=== PATIENT | male | born 1930 | race Caucasian/White ===

== ENCOUNTER 2016-08-17 14:49 | Emergency (ER) | payer MEDICARE ==
[2016-08-17 16:54] VITALS: TEMP 98
--- NOTE | 2016-08-17 17:13 | RAD ---
PROCEDURE: Chest,2 Views CLINICAL HISTORY: edema INDICATION: Same as above COMPARISON: 03/06/2016 TECHNIQUE: PA and and lateral chest radiographs were obtained. FINDINGS: Note is again made of CABG and median sternotomy There are no discrete airspace infiltrates, pneumothoraces or pleural effusions. The pulmonary vascularity is normal The cardiomediastinal silhouette is stable IMPRESSION: There is no acute pleural-parenchymal process seen in the imaged lung kohler. Place of interpretation: [facility]. 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
--- NOTE | 2016-08-17 18:15 | ED.PDOC ---
History of Present Illness - General Chief Complaint: Cardiovascular Problem Stated Complaint: edema to legs Time Seen by Provider: 08/17/16 16:40 Source: patient, family Exam Limitations: no limitations - History of Present Illness Initial Comments: the patient is an 86-year-old male presenting to the emergency room secondary to lower extremity edema that has been present and somewhat progressive over the last 3-4 months. He is also reporting some shortness of breath with exertion. No orthopnea or paroxysmal nocturnal dyspnea. He did just recently received a steroid shot with his primary care doctor for rhinitis. No sick. Near syncope. No palpitations. He does not need to wear oxygen at home. No chest pain. Timing/Duration: constant, getting worse Severity: moderate Improving Factors: nothing Worsening Factors: nothing Associated Symptoms: malaise, shortness of breath, weakness Allergies/Adverse Reactions: Allergies Penicillin G Allergy (Verified 03/06/16 18:18) Procaine [From Novocain] Allergy (Verified 03/06/16 18:18) IVP dye Allergy (Uncoded 03/06/16 18:18) Home Medications: Ambulatory Orders Aspirin [Aspirin Adult Low Dose] 81 mg PO DAILY 01/02/16 Dutasteride [Avodart] 0.5 mg PO DAILY 01/02/16 HYDROcodone 10MG/APAP 325MG [[place] 10/325] 1 ea PO 5XD PRN 01/02/16 Isosorbide Mononitrate [Isosorbide Mononitrate ER] 30 mg PO DAILY 01/02/16 Omeprazole [Prilosec] 40 mg PO DAILY@0700 01/02/16 Propranolol HCl 20 mg PO BID 01/02/16 Tamsulosin [Flomax] 0.4 mg PO BEDTIME 01/02/16 Calcium Carbonate-Vitamin D [Calcium 600+D 600-400 mg-Unit] 1 tab PO DAILY 01/05 Guaifenesin [Mucinex Maximum Strength] 1,200 mg PO BID 01/06/16 Docusate Sodium [Colace Cap] 100 mg PO DAILY #30 cap 01/07/16 Gabapentin [Neurontin] 300 mg PO TID #30 cap 01/07/16 Warfarin Sodium [Coumadin] 4 mg PO BEDTIME #0 01/07/16 Fluticasone Furoate-Vilanterol [Breo Ellipta] 1 inh IN DAILY 03/06/16 Furosemide [Lasix Tab] 80 mg PO BID 03/06/16 Methocarbamol [Robaxin] 750 mg PO Q6HRS PRN 03/06/16 Nitroglycerin Patch 0.2 mg/Hr [Nitro-Dur PATCH 0.2 mg/hour] 0.2 mg TOP QD Tramadol HCl 50 mg PO Q6HR 03/06/16 Metolazone 5 mg PO DAILY #5 tab 08/17/16 Review of Systems - Review of Systems Constitutional: States: malaise EENTM: States: no symptoms reported Respiratory: States: cough, short of breath Cardiology: States: edema Gastrointestinal/Abdominal: States: no symptoms reported Genitourinary: States: no symptoms reported Musculoskeletal: States: no symptoms reported Skin: States: no symptoms reported Neurological: States: no symptoms reported Endocrine: States: no symptoms reported All other Systems: No Change from Baseline Past Medical History (General) - Patient Medical History Hx Seizures: No Hx Stroke: No Hx Dementia: No Hx Asthma: No Hx of COPD: Yes Hx Cardiac Disorders: Yes Hx Congestive Heart Failure: Yes Hx Pacemaker: No Hx Hypertension: Yes Hx Thyroid Disease: No Hx Diabetes: No Hx Cancer: No Hx of HIV: No Hx Hepatitis C: No Hx MRSA: No - Vaccination History Hx Influenza Vaccination: Yes Hx Pneumococcal Vaccination: Yes - Social History Hx Tobacco Use: No Hx Alcohol Use: No Hx Substance Use: No Hx Substance Use Treatment: No Hx Depression: No Hx Physical Abuse: No Hx Emotional Abuse: No - Female History Patient is a Female of Child Bearing Age (10 -59 yrs old): No Family Medical History - Family History Mother Family History: Unknown Living Status: Age at (years of age): 85 Cause of : cardiac Physical Exam - Physical Exam General Appearance: Alert, Comfortable, No apparent distress Eye Exam: bilateral normal Ears, Nose, Throat: normal ENT inspection, normal pharynx Neck: non-tender, full range of motion, supple, normal inspection Respiratory: chest non-tender, lungs clear, normal breath sounds, no respiratory distress, no accessory muscle use Cardiovascular/Chest: normal peripheral pulses, irregularly irregular - but regular rate Peripheral Pulses: radial,right: 2+, radial,left: 2+, dorsalis pedis,right: 2+, dorsalis pedis,left: 2+ Gastrointestinal/Abdominal: non tender, soft, other - no obvious ascites Rectal Exam: deferred Back Exam: normal inspection Extremity: normal range of motion, non-tender, normal inspection, normal capillary refill Neurologic: alert, normal mood/affect, oriented x 3 Skin Exam: normal color Comments: Vital Signs - 24 hr 08/17/16 16:50 Temperature 98.0 F Pulse Rate [ 77 left arm] Respiratory 18 Rate Blood Pressure 144/79 [Left Arm] O2 Sat by Pulse 92 L Oximetry Progress - Progress Progress: 08/17/16 18:18 the patient is an 86-year-old male presenting to the emergency room secondary to peripheral edema that has been progressive over the last few months with a mild associated increased shortness of breath with activity. He does appear to be having a mild congestive heart failure exacerbation. He is not requiring oxygen and is not in any distress. He should require some compression stockings for his lower extremities to use during the daytime. He needs to take his Lasix 40 mg in the morning and at 2 PM. He is going to be written for metolazone 5 mg each morning for 5 days only. He needs to follow- up with his primary care doctor towards the end of this course. He needs to weigh himself daily. He needs to limit his fluid intake to 1500 cc daily. He needs to limit his salt intake. Exercise is encouraged. Lab work and chest x- ray are reassuring here today. Renal function does need to be followed. - Results/Orders Results/Orders: 08/17/16 16:41 Telemetry .CONTINUOUS 08/17/16 16:45 EKG STAT shows atrial fibrillation with good rate control. Low voltage. No acute ST segment changes immediately worrying for ischemia. Chest x-ray shows no obvious fluid overload. Gross cardiomegaly. No obvious infiltrate. Laboratory Results - last 24 hr 08/17/16 16:55 WBC 7.5 RBC 3.27 L Hgb 10.8 L Hct 32.5 L MCV 99.4 H MCH 33.0 H MCHC 33.3 RDW 16.4 H Plt Count 162 MPV 7.4 Absolute Neuts (auto) 6.90 H Absolute Lymphs (auto) 0.40 L Absolute Monos (auto) 0.20 Absolute Eos (auto) 0.00 Absolute Basos (auto) 0.00 Neutrophils % 91.2 H Lymphocytes % 5.2 L Monocytes % 3.0 Eosinophils % 0.1 L Basophils % 0.5 PT 55.6 H* INR 5.000 H* PTT (SP) 46.3 H Sodium 142 Potassium 4.4 Chloride 105 Carbon Dioxide 28 Anion Gap 13.4 BUN 27 H Creatinine 1.30 BUN/Creatinine Ratio 20.8 H Random Glucose 106 H Serum Osmolality 288.7 Calcium 8.7 Total Bilirubin 0.6 AST 17 ALT 16 Alkaline Phosphatase 51 Creatine Kinase 43 CK-MB (CK-2) 2.0 CK-MB (CK-2) % Not Reportable Troponin I 0.03 B-Natriuretic Peptide 574.0 H* Serum Total Protein 6.5 Albumin 3.4 Globulin 3.1 Albumin/Globulin Ratio 1.1 TSH 0.38 Departure - Departure Clinical Impression: Congestive heart failure Qualifiers: Congestive heart failure type: unspecified congestive heart failure type Congestive heart failure chronicity: acute on chronic Qualifier Code: (I50.9) Heart failure, unspecified Disposition: Discharge to Home or Self Care Condition: Fair Departure Forms: ED Discharge - Pt. Copy, Patient Portal Self Enrollment Instructions: DI for Heart Failure Diet: low salt diet Activity: increase activity as tolerated Referrals: Philip Mayer MD [Primary Care Provider] - 1-2 Weeks Prescriptions: Metolazone 5 mg PO DAILY #5 tab Home Medications: Ambulatory Orders Aspirin [Aspirin Adult Low Dose] 81 mg PO DAILY 01/02/16 Dutasteride [Avodart] 0.5 mg PO DAILY 01/02/16 HYDROcodone 10MG/APAP 325MG [[place] 10/325] 1 ea PO 5XD PRN 01/02/16 Isosorbide Mononitrate [Isosorbide Mononitrate ER] 30 mg PO DAILY 01/02/16 Omeprazole [Prilosec] 40 mg PO DAILY@0700 01/02/16 Propranolol HCl 20 mg PO BID 01/02/16 Tamsulosin [Flomax] 0.4 mg PO BEDTIME 01/02/16 Calcium Carbonate-Vitamin D [Calcium 600+D 600-400 mg-Unit] 1 tab PO DAILY 01/05 Guaifenesin [Mucinex Maximum Strength] 1,200 mg PO BID 01/06/16 Docusate Sodium [Colace Cap] 100 mg PO DAILY #30 cap 01/07/16 Gabapentin [Neurontin] 300 mg PO TID #30 cap 01/07/16 Warfarin Sodium [Coumadin] 4 mg PO BEDTIME #0 01/07/16 Fluticasone Furoate-Vilanterol [Breo Ellipta] 1 inh IN DAILY 03/06/16 Furosemide [Lasix Tab] 80 mg PO BID 03/06/16 Methocarbamol [Robaxin] 750 mg PO Q6HRS PRN 03/06/16 Nitroglycerin Patch 0.2 mg/Hr [Nitro-Dur PATCH 0.2 mg/hour] 0.2 mg TOP QD Tramadol HCl 50 mg PO Q6HR 03/06/16 Metolazone 5 mg PO DAILY #5 tab 08/17/16 Additional Instructions: the patient is an 86-year-old male presenting to the emergency room secondary to peripheral edema that has been progressive over the last few months with a mild associated increased shortness of breath with activity. He does appear to be having a mild congestive heart failure exacerbation. He is not requiring oxygen and is not in any distress. He should require some compression stockings for his lower extremities to use during the daytime. He needs to take his Lasix 40 mg in the morning and at 2 PM. He is going to be written for metolazone 5 mg each morning for 5 days only. He needs to follow- up with his primary care doctor towards the end of this course. He needs to weigh himself daily. He needs to limit his fluid intake to 1500 cc daily. He needs to limit his salt intake. Exercise is encouraged. Lab work and chest x- ray are reassuring here today. Renal function does need to be followed.
[2016-08-17 19:07] VITALS: BP 138/76; O2SAT 94
== END 2016-08-17 18:50 | disposition home or self-care (01) ==
LOC: ER 14:49
DX: I11.0 Hypertensive heart disease with heart failure (principal); I50.9 Heart failure, unspecified; J44.9 Chronic obstructive pulmonary disease, unspecified; I48.91 Unspecified atrial fibrillation; Z79.899 Other long term (current) drug therapy; Z79.82 Long term (current) use of aspirin; Z79.01 Long term (current) use of anticoagulants; Z88.0 Allergy status to penicillin; Z88.4 Allergy status to anesthetic agent; Z91.041 Radiographic dye allergy status

== ENCOUNTER 2016-08-28 13:51 | Emergency (ER) | payer MEDICARE ==
--- NOTE | 2016-08-28 14:05 | ED.PDOC ---
History of Present Illness - General Chief Complaint: Respiratory Problem Stated Complaint: shortness of breath Time Seen by Provider: 08/28/16 14:04 Source: patient, family Exam Limitations: no limitations - History of Present Illness Initial Comments: Mr. Mack Viveros 86 y/o male with history of cad,chf ,Afib stated that he had been having sob for the last 4 months and he is on 2 water pills but stated that it had gotten worse the last 4days feeling tried catching his breath with 4 step walking at home and getting out of bed. Timing/Duration: other - 120 DAYS Activities at Onset: activity Possible Cause: chronic episodes - chf Worsening Factors: movement Associated Symptoms: weakness Allergies/Adverse Reactions: Allergies Penicillin G Allergy (Verified 03/06/16 18:18) Procaine [From Novocain] Allergy (Verified 03/06/16 18:18) IVP dye Allergy (Uncoded 03/06/16 18:18) Home Medications: Ambulatory Orders Aspirin [Aspirin Adult Low Dose] 81 mg PO DAILY 01/02/16 Dutasteride [Avodart] 0.5 mg PO .M-W-F 01/02/16 HYDROcodone 10MG/APAP 325MG [[place] 10/325] 1 ea PO 5XD PRN 01/02/16 Isosorbide Mononitrate [Isosorbide Mononitrate ER] 30 mg PO DAILY 01/02/16 Omeprazole [Prilosec] 40 mg PO DAILY@0700 01/02/16 Propranolol HCl 20 mg PO BID 01/02/16 Tamsulosin [Flomax] 0.4 mg PO BEDTIME 01/02/16 Calcium Carbonate-Vitamin D [Calcium 600+D 600-400 mg-Unit] 1 tab PO DAILY 01/05 Guaifenesin [Mucinex Maximum Strength] 1,200 mg PO BID 01/06/16 Furosemide [Lasix Tab] 80 mg PO DAILY 03/06/16 Albuterol Sulfate Nebs [Proventil Nebs] 2.5 mg INH PRN 08/28/16 Fluticasone/Salmeterol 250/50 [Advair Diskus] 1 puff INH BID 08/28/16 Nitroglycerin [Nitrostat] 0.4 mg SL PRN 08/28/16 Polyethylene Glycol 3350 [Miralax] 17 gm PO DAILY 08/28/16 Potassium Chloride Elixir [Kaochlor Liquid] 7.5 meq PO DAILY 08/28/16 Red Yeast Rice Extract [Red Yeast Rice] 600 mg PO TID 08/28/16 Temazepam 15 mg PO BEDTIME 08/28/16 Tiotropium [place] Monohydrate [Spiriva Handihaler] 1 puff IN DAILY 08/28/16 Warfarin Sodium 2 mg PO .M-W-F 08/28/16 Warfarin Sodium [Coumadin] 4 mg PO .SA,AMANDA,TU,TH 08/28/16 Review of Systems - Review of Systems Constitutional: States: see HPI EENTM: States: no symptoms reported Respiratory: States: orthopnea, short of breath Cardiology: States: edema Gastrointestinal/Abdominal: States: no symptoms reported Genitourinary: States: other - frequency Skin: States: no symptoms reported Neurological: States: no symptoms reported Endocrine: States: no symptoms reported Hematologic/Lymphatic: States: no symptoms reported Past Medical History (General) - Patient Medical History Hx Seizures: No Hx Stroke: No Hx Dementia: No Hx Asthma: No Hx of COPD: Yes Hx Cardiac Disorders: Yes Hx Congestive Heart Failure: Yes Hx Pacemaker: No Hx Hypertension: Yes Hx Thyroid Disease: No Hx Diabetes: No Hx Cancer: No Hx of HIV: No Hx Hepatitis C: No Hx MRSA: No Surgical History: coronary bypass surgery, other - hernia repair - Vaccination History Hx Influenza Vaccination: Yes Hx Pneumococcal Vaccination: Yes - Social History Hx Tobacco Use: No Hx Alcohol Use: No Hx Substance Use: No Hx Substance Use Treatment: No Hx Depression: No Hx Physical Abuse: No Hx Emotional Abuse: No - Activities of Daily Living Patient Lives Alone: No - Grooming Ability: Moderate Assistance Eating (Feeding) Ability: Standby Assistance Toileting Ability: Minimum Assistance Family Medical History - Family History Mother Family History: Unknown Living Status: Age at (years of age): 85 Cause of : cardiac Hx Cardiac Disease: Yes - both parents Physical Exam - Physical Exam General Appearance: Alert, Anxious, No apparent distress Eyes, Ears, Nose, Throat Exam: PERRL/EOMI, normal ENT inspection, TMs normal, pharynx normal Neck: non-tender, full range of motion, supple, normal inspection, other - no jvd Respiratory: chest non-tender, no respiratory distress, rales - bases Cardiovascular/Chest: normal peripheral pulses, regular rate, rhythm, no edema, no gallop, no JVD Peripheral Pulses: radial,right: 2+, radial,left: 2+ Gastrointestinal/Abdominal: normal bowel sounds, non tender, soft, no organomegaly, no pulsatile mass Extremity: normal range of motion, non-tender, pedal edema - 2+ Neurologic: sustainability specialist II-XII nml as tested, no motor/sensory deficits, alert, normal mood/affect, oriented x 3 Skin Exam: normal color, warm/dry Lymphatic: no adenopathy Progress - Results/Orders Results/Orders: 08/28/16 16:00 Bumetanide Inj [Bumex Injection] 1 mg IV DAILY 08/28/16 17:21 URINALYSIS Stat Laboratory Results WBC 7.0 K/mm3 (4.8-10.8) 08/28/16 14:20 RBC 3.61 M/mm3 (4.70-6.10) L 08/28/16 14:20 Hgb 11.8 gm/dL (14.0-18.0) L 08/28/16 14:20 Hct 35.7 % (42.0-52.0) L 08/28/16 14:20 MCV 98.7 fl (80.0-94.0) H 08/28/16 14:20 MCH 32.6 pg (27.0-31.0) H 08/28/16 14:20 MCHC 33.2 g/dL (33.0-37.0) 08/28/16 14:20 RDW 16.4 % (11.5-14.5) H 08/28/16 14:20 Plt Count 247 K/mm3 (130-400) 08/28/16 14:20 MPV 7.3 fl (7.40-10.4) L 08/28/16 14:20 Absolute Neuts (auto) 5.40 K/uL (1.8-6.8) 08/28/16 14:20 Absolute Lymphs (auto) 0.60 K/uL (1.0-3.4) L 08/28/16 14:20 Absolute Monos (auto) 0.60 K/uL (0.2-0.8) 08/28/16 14:20 Absolute Eos (auto) 0.40 K/uL (0.0-0.4) 08/28/16 14:20 Absolute Basos (auto) 0.10 K/uL (0.0-0.1) 08/28/16 14:20 Neutrophils % 77.4 % (42.0-78.0) 08/28/16 14:20 Lymphocytes % 8.6 % (20.0-50.0) L 08/28/16 14:20 Monocytes % 7.8 % (2.0-9.0) 08/28/16 14:20 Eosinophils % 5.3 % (1.0-5.0) H 08/28/16 14:20 Basophils % 0.9 % (0.0-2.0) 08/28/16 14:20 Sodium 141 mmol/L (135-145) 08/28/16 14:20 Potassium 3.9 mmol/L (3.6-5.0) 08/28/16 14:20 Chloride 102 mmol/L (101-111) 08/28/16 14:20 Carbon Dioxide 29 mmol/L (21-31) 08/28/16 14:20 Anion Gap 13.9 (12-18) 08/28/16 14:20 BUN 24 mg/dL (7-18) H 08/28/16 14:20 Creatinine 1.19 mg/dL (0.6-1.3) 08/28/16 14:20 BUN/Creatinine Ratio 20.2 (10-20) H 08/28/16 14:20 Random Glucose 101 mg/dL (70-105) 08/28/16 14:20 Serum Osmolality 285.4 mOsm/L (275-295) 08/28/16 14:20 Calcium 8.8 mg/dL (8.4-10.2) 08/28/16 14:20 Total Bilirubin 0.9 mg/dL (0.2-1.0) 08/28/16 14:20 AST 17 IU/L (10-42) 08/28/16 14:20 ALT 18 IU/L (10-60) 08/28/16 14:20 Alkaline Phosphatase 51 IU/L (42-121) 08/28/16 14:20 Creatine Kinase 11 IU/L (38-174) L 08/28/16 14:20 CK-MB (CK-2) 1.2 ng/mL (0.0-4.4) 08/28/16 14:20 CK-MB (CK-2) % Not Reportable 08/28/16 14:20 Troponin I 0.03 ng/mL (0.01-0.05) 08/28/16 14:20 B-Natriuretic Peptide 355.0 pg/ml (0-100) H* 08/28/16 14:20 Serum Total Protein 6.3 gm/dL (6.4-8.2) L 08/28/16 14:20 Albumin 3.4 g/dl (3.2-5.5) 08/28/16 14:20 Globulin 2.9 gm/dL (2.3-3.5) 08/28/16 14:20 Albumin/Globulin Ratio 1.2 (1.1-1.9) 08/28/16 14:20 TSH 1.30 uIU/mL (0.34-5.60) 08/28/16 14:26 08/28/16 08/28/16 08/28/16 14:03 14:14 15:10 Temperature 97.8 F Pulse Rate Pulse Rate [ 88 77 Left Brachial] Respiratory 24 24 20 Rate Blood Pressure 99/53 98/58 [Left Arm] O2 Sat by Pulse 94 L 97 Oximetry 08/28/16 08/28/16 15:50 15:59 Temperature Pulse Rate 87 Pulse Rate [ 77 Left Brachial] Respiratory 18 24 Rate Blood Pressure 104/62 [Left Arm] O2 Sat by Pulse 97 97 Oximetry Ddimer-418 PT/INR-1.43 - EKG/XRAY/CT EKG: Fibrillation - atrialwith normal ventricular rate XRAY: chest - no acute abnormalities Departure - Departure Clinical Impression: CHF (NYHA class IV, ACC/AHA stage D), Atrial fibrillation with normal ventricular rate, Dyspnea on exertion Chronic CHF (congestive heart failure) Qualifiers: Congestive heart failure type: combined Qualifier Code: (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 Copy, Patient Portal Self Enrollment Instructions: How to [place] With Heart Failure, DI for Heart Failure Home Medications: Ambulatory Orders Aspirin [Aspirin Adult Low Dose] 81 mg PO DAILY 01/02/16 Dutasteride [Avodart] 0.5 mg PO .-01/02/16 HYDROcodone 10MG/APAP 325MG [[place] 10/325] 1 ea PO 5XD PRN 01/02/16 Isosorbide Mononitrate [Isosorbide Mononitrate ER] 30 mg PO DAILY 01/02/16 Omeprazole [Prilosec] 40 mg PO DAILY@0700 01/02/16 Propranolol HCl 20 mg PO BID 01/02/16 Tamsulosin [Flomax] 0.4 mg PO BEDTIME 01/02/16 Calcium Carbonate-Vitamin D [Calcium 600+D 600-400 mg-Unit] 1 tab PO DAILY 01/05 Guaifenesin [Mucinex Maximum Strength] 1,200 mg PO BID 01/06/16 Furosemide [Lasix Tab] 80 mg PO DAILY 03/06/16 Albuterol Sulfate Nebs [Proventil Nebs] 2.5 mg INH PRN 08/28/16 Fluticasone/Salmeterol 250/50 [Advair Diskus] 1 puff INH BID 08/28/16 Nitroglycerin [Nitrostat] 0.4 mg SL PRN 08/28/16 Polyethylene Glycol 3350 [Miralax] 17 gm PO DAILY 08/28/16 Potassium Chloride Elixir [Kaochlor Liquid] 7.5 meq PO DAILY 08/28/16 Red Yeast Rice Extract [Red Yeast Rice] 600 mg PO TID 08/28/16 Temazepam 15 mg PO BEDTIME 08/28/16 Tiotropium [place] Monohydrate [Spiriva Handihaler] 1 puff IN DAILY 08/28/16 Warfarin Sodium 2 mg PO .08/28/16 Warfarin Sodium [Coumadin] 4 mg PO .SA,AMANDA,TU,TH 08/28/16 Additional Instructions: FOLLOW UP WITH YOUR PRIMARY MD IN AM CALL HIS OFFICE;RETURN TO EMERGENCY ROOM NEEDED CONTINUE WITH CURRENT MEDICATIONS
[2016-08-28 14:07] VITALS: TEMP 97.8
--- NOTE | 2016-08-28 14:27 | RAD ---
PROCEDURE: XR CHEST 1 VIEW HISTORY: sob COMPARISON: 08/17/2016 TECHNIQUE: Single projection of the chest was done. FINDINGS: Note is again made of median sternotomy and CABG. Chronic prominence of the interstitium is seen in the bilateral lung kohler . There are no discrete airspace infiltrates, pneumothoraces or pleural effusions. The pulmonary vascularity is normal. The cardiomediastinal contour is stable . IMPRESSION: There is no acute pleural-parenchymal process seen in the imaged lung kohler. Location of Interpretation: [facility]iology Electronically signed by: Bj Lock MD 08/28/2016 2:25 PM CDT
[2016-08-28] MEDS ORDERED: IPRATROPIUM/ALBUTEROL 3 ML VIAL NEB ONE (15:38)
[2016-08-28] MEDS ORDERED: BUMETANIDE 0.25 MG/ML VIAL IV SCH (16:00)
[2016-08-28 19:06] VITALS: BP 99/52; O2SAT 95
== END 2016-08-28 19:06 | disposition home or self-care (01) ==
LOC: ER 13:51
DX: I48.91 Unspecified atrial fibrillation (principal); R06.09 Other forms of dyspnea; I11.0 Hypertensive heart disease with heart failure; I50.42 Chronic combined systolic (congestive) and diastolic (congestive) heart failure; Z95.1 Presence of aortocoronary bypass graft; J44.9 Chronic obstructive pulmonary disease, unspecified; Z79.82 Long term (current) use of aspirin; Z79.01 Long term (current) use of anticoagulants; Z88.0 Allergy status to penicillin; Z88.4 Allergy status to anesthetic agent; Z91.041 Radiographic dye allergy status
CPT/HCPCS: 36415; 71010; 80053; 81001; 82550; 82553; 83880; 84443; 84484; 85025; 85379; 85610; 93005; 94640; J3490; J7620

== ENCOUNTER → 2016-09-07 | Outpatient (CLI) | payer MEDICARE | END | disposition home or self-care (01) | LOC: GMA 20:07 | PROVIDERS: ATTEND Nurse Practitioner Acute Care | DX: J06.9 Acute upper respiratory infection, unspecified (principal) ==

== ENCOUNTER 2016-09-10 22:40 | Emergency (ER) | payer MEDICARE ==
--- NOTE | 2016-09-10 22:45 | ED.PDOC ---
History of Present Illness - General Chief Complaint: Respiratory Problem Stated Complaint: cough out blood Time Seen by Provider: 09/10/16 22:44 Source: patient Exam Limitations: no limitations - History of Present Illness Initial Comments: Mack Viveros 86y/o male with history of copd,chf,afib on chronic anticoagulation and was prescribed home oxygen recently stated after coughing episode he had blood tinged sputum no blood clots with it.Had chest ct w/o 2010 had right pulmonary nodule follow up chest ct w/o 2012 no interval change of the 7mm.nodule noted as read by radiologist. Timing/Duration: this evening Severity: moderate Possible Cause: no prior episodes, other - history of chronic anticoagulation with warfarin Improving Factors: nothing Associated Symptoms: chest pain/soreness - right side, cough, wheezing Respiratory Risk Factors: other - copd Allergies/Adverse Reactions: Allergies Penicillin G Allergy (Verified 03/06/16 18:18) Procaine [From Novocain] Allergy (Verified 03/06/16 18:18) IVP dye Allergy (Uncoded 03/06/16 18:18) Home Medications: Ambulatory Orders Aspirin [Aspirin Adult Low Dose] 81 mg PO DAILY 01/02/16 Dutasteride [Avodart] 0.5 mg PO .M-W-F 01/02/16 HYDROcodone 10MG/APAP 325MG [[place] 10/325] 1 ea PO 5XD PRN 01/02/16 Isosorbide Mononitrate [Isosorbide Mononitrate ER] 30 mg PO DAILY 01/02/16 Omeprazole [Prilosec] 40 mg PO DAILY@0700 01/02/16 Propranolol HCl 20 mg PO BID 01/02/16 Tamsulosin [Flomax] 0.4 mg PO BEDTIME 01/02/16 Calcium Carbonate-Vitamin D [Calcium 600+D 600-400 mg-Unit] 1 tab PO DAILY 01/05 Guaifenesin [Mucinex Maximum Strength] 1,200 mg PO BID 01/06/16 Furosemide [Lasix Tab] 80 mg PO DAILY 03/06/16 Albuterol Sulfate Nebs [Proventil Nebs] 2.5 mg INH PRN 08/28/16 Fluticasone/Salmeterol 250/50 [Advair Diskus] 1 puff INH BID 08/28/16 Nitroglycerin [Nitrostat] 0.4 mg SL PRN 08/28/16 Polyethylene Glycol 3350 [Miralax] 17 gm PO DAILY 08/28/16 Potassium Chloride Elixir [Kaochlor Liquid] 7.5 meq PO DAILY 08/28/16 Red Yeast Rice Extract [Red Yeast Rice] 600 mg PO TID 08/28/16 Temazepam 15 mg PO BEDTIME 08/28/16 Tiotropium [place] Monohydrate [Spiriva Handihaler] 1 puff IN DAILY 08/28/16 Warfarin Sodium 2 mg PO .-W-08/28/16 Warfarin Sodium [Coumadin] 4 mg PO .SA,AMANDA,TU,TH 08/28/16 Review of Systems - Review of Systems Constitutional: States: no symptoms reported EENTM: States: no symptoms reported Respiratory: States: see HPI Cardiology: States: see HPI Gastrointestinal/Abdominal: States: no symptoms reported Genitourinary: States: no symptoms reported Musculoskeletal: States: no symptoms reported Skin: States: no symptoms reported Neurological: States: no symptoms reported Endocrine: States: no symptoms reported Hematologic/Lymphatic: States: no symptoms reported Past Medical History (General) - Patient Medical History Hx Seizures: No Hx Stroke: No Hx Dementia: No Hx Asthma: No Hx of COPD: Yes Hx Cardiac Disorders: Yes Hx Congestive Heart Failure: Yes Hx Pacemaker: No Hx Hypertension: Yes Hx Thyroid Disease: No Hx Diabetes: No Hx Cancer: No Hx of HIV: No Hx Hepatitis C: No Hx MRSA: No Hx Other PMH: Yes - bph Surgical History: coronary bypass surgery, other - hernia repair - Vaccination History Hx Influenza Vaccination: Yes Hx Pneumococcal Vaccination: Yes - Social History Hx Tobacco Use: No Hx Alcohol Use: No Hx Substance Use: No Hx Substance Use Treatment: No Hx Depression: No Hx Physical Abuse: No Hx Emotional Abuse: No - Activities of Daily Living Patient Lives Alone: No - with Grooming Ability: Standby Assistance Eating (Feeding) Ability: Standby Assistance Toileting Ability: Standby Assistance Family Medical History - Family History Mother Family History: Unknown Living Status: Age at (years of age): 85 Cause of : cardiac Hx Cardiac Disease: Yes - both parents Physical Exam - Physical Exam General Appearance: Alert, No apparent distress Eye Exam: bilateral normal ENT Exam: normal ENT inspection, hearing grossly normal, TMs normal, pharynx normal Neck: non-tender, full range of motion, supple, normal inspection, trachea midline Respiratory: chest non-tender, no respiratory distress, no accessory muscle use , wheezing, inspiration Cardiovascular/Chest: normal peripheral pulses, no gallop, irregularly irregular , other - ventricular rate 79 Gastrointestinal/Abdominal: normal bowel sounds, non tender, soft, no organomegaly Extremity: non-tender, no calf tenderness, pedal edema - 2 + Neurologic: no motor/sensory deficits, alert, normal mood/affect, oriented x 3 Skin Exam: normal color, warm/dry Lymphatic: no adenopathy Progress - Results/Orders Results/Orders: 09/10/16 22:48 SVN/Updraft Therapy .ONCE 09/10/16 23:00 EKG STAT 09/11/16 09:00 Updrafts Daily Laboratory Results WBC 5.7 K/mm3 (4.8-10.8) 09/10/16 23:15 RBC 3.61 M/mm3 (4.70-6.10) L 09/10/16 23:15 Hgb 11.6 gm/dL (14.0-18.0) L 09/10/16 23:15 Hct 35.3 % (42.0-52.0) L 09/10/16 23:15 MCV 97.9 fl (80.0-94.0) H 09/10/16 23:15 MCH 32.1 pg (27.0-31.0) H 09/10/16 23:15 MCHC 32.7 g/dL (33.0-37.0) L 09/10/16 23:15 RDW 16.3 % (11.5-14.5) H 09/10/16 23:15 Plt Count 243 K/mm3 (130-400) 09/10/16 23:15 MPV 8.0 fl (7.40-10.4) 09/10/16 23:15 Absolute Neuts (auto) 5.10 K/uL (1.8-6.8) 09/10/16 23:15 Absolute Lymphs (auto) 0.50 K/uL (1.0-3.4) L 09/10/16 23:15 Absolute Monos (auto) 0.10 K/uL (0.2-0.8) L 09/10/16 23:15 Absolute Eos (auto) 0.00 K/uL (0.0-0.4) 09/10/16 23:15 Absolute Basos (auto) 0.00 K/uL (0.0-0.1) 09/10/16 23:15 Neutrophils % 89.1 % (42.0-78.0) H 09/10/16 23:15 Lymphocytes % 7.9 % (20.0-50.0) L 09/10/16 23:15 Monocytes % 2.6 % (2.0-9.0) 09/10/16 23:15 Eosinophils % 0.0 % (1.0-5.0) L 09/10/16 23:15 Basophils % 0.4 % (0.0-2.0) 09/10/16 23:15 PT 27.3 SECONDS (9.4-12.5) H* 09/10/16 23:15 INR 2.440 09/10/16 23:15 PTT (SP) 34.4 SECONDS (25.1-36.5) 09/10/16 23:15 Sodium 139 mmol/L (135-145) 09/10/16 23:15 Potassium 4.0 mmol/L (3.6-5.0) 09/10/16 23:15 Chloride 104 mmol/L (101-111) 09/10/16 23:15 Carbon Dioxide 25 mmol/L (21-31) 09/10/16 23:15 Anion Gap 14.0 (12-18) 09/10/16 23:15 BUN 24 mg/dL (7-18) H 09/10/16 23:15 Creatinine 1.32 mg/dL (0.6-1.3) H 09/10/16 23:15 BUN/Creatinine Ratio 18.2 (10-20) 09/10/16 23:15 Random Glucose 145 mg/dL (70-105) H 09/10/16 23:15 Serum Osmolality 284.2 mOsm/L (275-295) 09/10/16 23:15 Calcium 8.9 mg/dL (8.4-10.2) 09/10/16 23:15 Magnesium 1.9 mg/dL (1.8-2.5) 09/10/16 23:15 Total Bilirubin 0.5 mg/dL (0.2-1.0) 09/10/16 23:15 Direct Bilirubin 0.2 mg/dL (0-0.2) 09/10/16 23:15 Indirect Bilirubin 0.3 mg/dL (0.2-0.8) 09/10/16 23:15 AST 21 IU/L (10-42) 09/10/16 23:15 ALT 14 IU/L (10-60) 09/10/16 23:15 Alkaline Phosphatase 50 IU/L (42-121) 09/10/16 23:15 Creatine Kinase 16 IU/L (38-174) L 09/10/16 23:15 CK-MB (CK-2) 1.7 ng/mL (0.0-4.4) 09/10/16 23:15 CK-MB (CK-2) % Not Reportable 09/10/16 23:15 Troponin I < 0.02 ng/mL (0.01-0.05) 09/10/16 23:15 B-Natriuretic Peptide 580.0 pg/ml (0-100) H* 09/10/16 23:15 Serum Total Protein 6.4 gm/dL (6.4-8.2) 09/10/16 23:15 Albumin 3.4 g/dl (3.2-5.5) 09/10/16 23:15 - EKG/XRAY/CT EKG: Atrial, Fibrillation - venticular rate 79 XRAY: chest - no acute cardiopulmonary process Departure - Departure Clinical Impression: Hemoptysis, Acute exacerbation of chronic bronchitis, Anticoagulant long-term use, Atrial fibrillation with normal ventricular rate, Renal insufficiency A-fib Qualifiers: Atrial fibrillation type: chronic Qualifier Code: (I48.2) Chronic atrial fibrillation Chronic CHF (congestive heart failure) Qualifiers: Congestive heart failure type: combined Qualifier Code: (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 Time of Disposition: 00:34 Disposition: Discharge to Home or Self Care Condition: Fair Instructions: DI for Hemoptysis Referrals: Philip Mayer MD [Primary Care Provider] - 1-2 Weeks Home Medications: Ambulatory Orders Aspirin [Aspirin Adult Low Dose] 81 mg PO DAILY 01/02/16 Dutasteride [Avodart] 0.5 mg PO .-01/02/16 HYDROcodone 10MG/APAP 325MG [[place] 10/325] 1 ea PO 5XD PRN 01/02/16 Isosorbide Mononitrate [Isosorbide Mononitrate ER] 30 mg PO DAILY 01/02/16 Omeprazole [Prilosec] 40 mg PO DAILY@0700 01/02/16 Propranolol HCl 20 mg PO BID 01/02/16 Tamsulosin [Flomax] 0.4 mg PO BEDTIME 01/02/16 Calcium Carbonate-Vitamin D [Calcium 600+D 600-400 mg-Unit] 1 tab PO DAILY 01/05 Guaifenesin [Mucinex Maximum Strength] 1,200 mg PO BID 01/06/16 Furosemide [Lasix Tab] 80 mg PO DAILY 03/06/16 Albuterol Sulfate Nebs [Proventil Nebs] 2.5 mg INH PRN 08/28/16 Fluticasone/Salmeterol 250/50 [Advair Diskus] 1 puff INH BID 08/28/16 Nitroglycerin [Nitrostat] 0.4 mg SL PRN 08/28/16 Polyethylene Glycol 3350 [Miralax] 17 gm PO DAILY 08/28/16 Potassium Chloride Elixir [Kaochlor Liquid] 7.5 meq PO DAILY 08/28/16 Red Yeast Rice Extract [Red Yeast Rice] 600 mg PO TID 08/28/16 Temazepam 15 mg PO BEDTIME 08/28/16 Tiotropium [place] Monohydrate [Spiriva Handihaler] 1 puff IN DAILY 08/28/16 Warfarin Sodium 2 mg PO .M-W-F 08/28/16 Warfarin Sodium [Coumadin] 4 mg PO .SA,AMANDA,TU,TH 08/28/16 Additional Instructions: Do not take your aspirin and coumadin starting 09/10-; Follow up with your doctor ROBBIN 09/12/2016 call for appointment;Continue with the rest of your home medication and oxygen except aspirin and coumadin until checked by you
[2016-09-10] MEDS ORDERED: IPRATROPIUM/ALBUTEROL 3 ML VIAL NEB ONE (22:48)
--- NOTE | 2016-09-11 00:12 | RAD ---
EXAM: Single view chest. INDICATION: Chest pain. COMPARISON: Chest x-ray: 08/28/2016. FINDINGS: Cardiac silhouette: Mildly enlarged [place]: Unremarkable. Lobar consolidation: None. Pleural effusion: None. Pneumothorax: None. Other: Median sternotomy wires are noted. Bones: The bones are demineralized Other: Chronic interstitial markings are again noted. IMPRESSION: 1. No acute cardiopulmonary process. Electronically signed by: iVshal Cerna MD 09/11/2016 12:11 AM CDT
[2016-09-11] MEDS ORDERED: IPRATROPIUM/ALBUTEROL 3 ML VIAL NEB ONE (00:33)
[2016-09-11 01:00] VITALS: BP 113/60; TEMP 97; O2SAT 94
== END 2016-09-11 00:59 | disposition home or self-care (01) ==
LOC: ER 22:40
DX: I48.2 Chronic atrial fibrillation (principal); R04.2 Hemoptysis; I11.0 Hypertensive heart disease with heart failure; I50.40 Unspecified combined systolic (congestive) and diastolic (congestive) heart failure; J44.9 Chronic obstructive pulmonary disease, unspecified; Z95.1 Presence of aortocoronary bypass graft; N28.9 Disorder of kidney and ureter, unspecified; Z88.0 Allergy status to penicillin; Z88.4 Allergy status to anesthetic agent; Z91.041 Radiographic dye allergy status; Z79.82 Long term (current) use of aspirin; Z79.01 Long term (current) use of anticoagulants
CPT/HCPCS: 71010; 80048; 80076; 82550; 82553; 83880; 84484; 85025; 85610; 85730; 93005; 94640; J7620

== ENCOUNTER 2016-10-04 07:58 | Inpatient (IN) | payer MEDICARE ==
--- NOTE | 2016-10-04 09:00 | RAD ---
EXAM DESCRIPTION: Abdomen Series CLINICAL HISTORY: ams, falls, vomiting COMPARISON: Chest x-ray September 10, 2016 FINDINGS: AP supine and upright views of the abdomen show a nonspecific, nonobstructive bowel gas pattern with no evidence for free intraperitoneal air. No air-filled dilated loops of small bowel are seen. No significant air-fluid levels are identified. No obvious organomegaly is seen. No abnormal calcifications are seen in the expected location of the renal collecting systems. Single view of the chest shows enlargement of the cardiac silhouette. Pulmonary vascularity is noted. 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 New area of infiltrate or consolidation identified majority of the left upper lobe. Increased densities are seen in the right mid lung field as well. Osseous structures are diffusely osteopenic. 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 Left hip arthroplasty changes are noted. Vertebral augmentation in the mid to upper lumbar spine is seen. IMPRESSION: Nonspecific abdominal series Findings suggest pneumonia or aspiration in the left upper lobe with questionable infiltrates or atelectasis in the right midlung field. Continued follow-up imaging is recommended. Electronically signed by: Brady Gao MD 10/04/2016 8:59 AM CDT
[2016-10-04] MEDS ORDERED: cefTRIAXone SODIUM 1 GM in SODIUM CHL 0.9% 50ML MIN-BAG+ 50 ML IVPB ONE (09:50)
[2016-10-04] MEDS ORDERED: AZITHROMYCIN IV 500 MG in SODIUM CHLORIDE 0.9% 250ML 250 ML IVPB ONE (09:50)
[2016-10-04] MEDS ORDERED: IPRATROPIUM/ALBUTEROL 3 ML VIAL NEB ONE (09:51)
[2016-10-04] MEDS ORDERED: SODIUM CHL 0.9% 50ML MIN-BAG+ 50 ML IVPB ONE (09:53)
[2016-10-04] MEDS ORDERED: cefTRIAXone SODIUM 1 GM VIAL ONE (09:53)
--- NOTE | 2016-10-04 09:59 | CT ---
EXAM DESCRIPTION: Chest w/o Contrast CLINICAL HISTORY: pulm infiltrate:pna vs contusion vs chf COMPARISON: None. TECHNIQUE: Noncontrast transaxial CT images of the chest are obtained. CT scan done according to ALARA (As Low As Reasonably Achievable). FINDINGS: Heart is enlarged. Postsurgical changes from CABG are seen. Moderate calcified plaque of the thoracic aorta is noted. 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 Consider yearly follow-up imaging to determine stability. There are nonspecific less than 1 cm mediastinal lymph nodes identified. No pericardial effusion. No significant pleural effusion. Visualized portion of the upper abdomen shows early visualized, and gallbladder measuring at least 5.3 cm transverse. There is consolidation with air bronchogram appearance to the central to left upper lobe. Smaller nodular area of parenchymal increased density in the right upper lobe measures 1.9 cm. Similar peripheral nodular densities in the mid right lower lobe are seen measuring less than 1.5 cm. Mild interstitial thickening in the lung bases is seen left greater than right. There is interstitial thickening in the lingula of the left upper lobe. Osseous structures are diffusely osteopenic. Remote healed fractures of the anterior left mid to lower chest is seen. Moderate spondylitic changes of the spine are noted. IMPRESSION: Consolidation with air bronchograms in the left upper lobe consistent with pneumonia versus aspiration. Recommend follow-up until resolution to exclude neoplastic process. There are focal areas of airspace density/nodularity in the right upper lobe and right lower lobe that likely also represent pneumonia or infectious inflammatory process. Continued follow-up to exclude neoplastic process is recommended. Increased interstitial markings in the lung bases and lingula could represent chronic changes versus acute interstitial infectious inflammatory process. No significant pleural effusion is identified at this time. Electronically signed by: Brady Gao MD 10/04/2016 9:44 AM CDT
--- NOTE | 2016-10-04 11:00 | ED.PDOC ---
History of Present Illness - General Chief Complaint: General Stated Complaint: fever, "hurting all over" Time Seen by Provider: 10/04/16 07:58 Source: patient Exam Limitations: no limitations - History of Present Illness Initial Comments: The patient is an 86-year-old male presenting to the emergency room secondary to progressive weakness and body aches primarily. EMS had been out to the house approximately 3 times over the last 24 hours. He had fallen at least once and sustained some rib pain on the right after being lifted up by EMS and police to get him back into bed. He has had a slow decline over the last few months essentially becoming wheelchair-bound and oxygen dependent 24 7. He is slightly altered here today. He is in no acute distress. He is requiring approximately 2 L to maintain oxygen saturation greater than 90% which is up from his baseline of only 1 L. He does have rales primarily in the left midlung. He does look weak. He does look pale. He does have mild edema to bilateral lower extremities. He does have pain over the inferior lateral right rib cage. No obvious deformity. He has apparently been on antibiotics up until a week ago with his primary care doctor. The and patient are unsure what those antibiotics are at this time. the patient has been having a productive sputum and did have some very mild hemoptysis according to the this morning. Timing/Duration: 24 hours Severity: moderate Improving Factors: nothing Worsening Factors: movement Associated Symptoms: chest pain, cough, fever/chills, loss of appetite, malaise , shortness of breath, weakness Allergies/Adverse Reactions: Allergies Penicillin G Allergy (Verified 10/04/16 08:23) Procaine [From Novocain] Allergy (Verified 10/04/16 08:23) IVP dye Allergy (Uncoded 10/04/16 08:23) Home Medications: Ambulatory Orders Dutasteride [Avodart] 0.5 mg PO .-W-01/02/16 HYDROcodone 10MG/APAP 325MG [[place] 10/325] 1 ea PO 5XD PRN 01/02/16 Isosorbide Mononitrate [Isosorbide Mononitrate ER] 30 mg PO BID 01/02/16 Omeprazole [Prilosec] 40 mg PO DAILY@0700 01/02/16 Propranolol HCl 20 mg PO BID 01/02/16 Tamsulosin [Flomax] 0.4 mg PO BEDTIME 01/02/16 Calcium Carbonate-Vitamin D [Calcium 600+D 600-400 mg-Unit] 1 tab PO DAILY 01/05 Guaifenesin [Mucinex Maximum Strength] 1,200 mg PO BID 01/06/16 Furosemide [Lasix Tab] 80 mg PO DAILY 03/06/16 Albuterol Sulfate Nebs [Proventil Nebs] 2.5 mg INH PRN 08/28/16 Fluticasone/Salmeterol 250/50 [Advair Diskus] 1 puff INH BID 08/28/16 Nitroglycerin [Nitrostat] 0.4 mg SL PRN 08/28/16 Polyethylene Glycol 3350 [Miralax] 17 gm PO DAILY 08/28/16 Potassium Chloride Elixir [Kaochlor Liquid] 7.5 meq PO DAILY 08/28/16 Red Yeast Rice Extract [Red Yeast Rice] 600 mg PO TID 08/28/16 Temazepam 15 mg PO BEDTIME 08/28/16 Tiotropium [place] Monohydrate [Spiriva Handihaler] 1 puff IN DAILY 08/28/16 Warfarin Sodium 2 mg PO .M-W-08/28/16 Warfarin Sodium [Coumadin] 4 mg PO .SA,AMANDA,TU,TH 08/28/16 Review of Systems - Review of Systems Constitutional: States: fever, malaise, weakness EENTM: States: no symptoms reported Respiratory: States: cough, short of breath Cardiology: States: chest pain - lateral Gastrointestinal/Abdominal: States: no symptoms reported Genitourinary: States: no symptoms reported Musculoskeletal: States: no symptoms reported Skin: States: no symptoms reported Neurological: States: other - mildly delirious Endocrine: States: excessive sweating All other Systems: No Change from Baseline Past Medical History (General) - Patient Medical History Hx Seizures: No Hx Stroke: No Hx Dementia: No Hx Asthma: No Hx of COPD: Yes Hx Cardiac Disorders: Yes - AR Hx Congestive Heart Failure: Yes Hx Pacemaker: No Hx Hypertension: Yes Hx Thyroid Disease: No Hx Diabetes: No Hx Gastroesophageal Reflux: Yes Hx Renal Disease: No Hx Cancer: No Hx of HIV: No Hx Hepatitis C: No Hx MRSA: No - Vaccination History Hx Tetanus, Diphtheria Vaccination: No Hx Influenza Vaccination: Yes - 2015 Hx Pneumococcal Vaccination: Yes - 2016 - Social History Hx Tobacco Use: No Hx Alcohol Use: No Hx Substance Use: No Hx Substance Use Treatment: No Hx Depression: No Hx Physical Abuse: No Hx Emotional Abuse: No Family Medical History - Family History Mother Family History: Unknown Living Status: Age at (years of age): 85 Cause of : cardiac Hx Cardiac Disease: Yes - both parents Physical Exam - Physical Exam General Appearance: Alert, No apparent distress, Other - mildly delirious Eye Exam: bilateral normal Ears, Nose, Throat: normal ENT inspection, normal pharynx Neck: non-tender, full range of motion, supple Respiratory: no respiratory distress, no accessory muscle use, rales - Rales primarily to the right midlung. Mild rhonchi as well., other - right lower lateral rib cage uncomfortable to palpation. No gross deformity. No obvious crepitus. Cardiovascular/Chest: normal peripheral pulses, other - 1+ edema to bilateral lower extremities which is chronic. Regular rate but irregular rhythm. Peripheral Pulses: radial,right: 2+, radial,left: 2+, dorsalis pedis,right: 2+, dorsalis pedis,left: 2+ Gastrointestinal/Abdominal: non tender, soft Rectal Exam: deferred Back Exam: no vertebral tenderness Extremity: normal range of motion, non-tender, no calf tenderness, normal capillary refill, pedal edema Neurologic: alert - but easily confused, oriented x 3 - when given multiple choice options for the date Skin Exam: pallor Comments: Vital Signs - 24 hr 10/04/16 10/04/16 10/04/16 08:17 09:05 09:46 Temperature 99.9 F H 99.6 F 99.2 F Pulse Rate [ 100 H 113 H 100 H Right Radial] Respiratory 20 20 20 Rate Blood Pressure 110/63 126/88 [Left Arm] O2 Sat by Pulse 88 L 94 L 95 Oximetry Progress - Progress Progress: 10/04/16 11:04 the patient is an 86-year-old male presenting to the emergency room secondary to mild delirium with associated fevers and generalized weakness. The patient is found to have occluded bilateral pneumonia with the left side being worse. There is some concern for aspiration. The patient has thus far been started on Rocephin and azithromycin. Blood cultures have been performed. Sputum culture has been ordered. He has received 1 breathing treatment. He is requiring 2 L of oxygen to maintain his oxygen saturation. His INR is mildly elevated and with the report of some hemoptysis by his should promptly holding of his Coumadin for a day or 2. Vital signs are reassuring at this point however there is a high morbidity and mortality with a lobar pneumonia in a patient of his advanced age with his comorbidities. Admit for continued IV antibiotics, pulmonary care and monitoring of his mental status.encourage oral intake. - Results/Orders Results/Orders: 10/04/16 08:07 Telemetry .CONTINUOUS EKG Assessment ONCE 10/04/16 08:15 EKG STAT shows atrial fibrillation with rapid ventricular rate at a rate of 108 bpm. Persistent small Q waves in leads 3 and aVF that are consistent with old EKG. Occasional PVCs noted. Mild right axis deviation. Otherwise consistent with previous EKGs. 10/04/16 09:50 Azithromycin IV [Zithromax IV] 500 mg Sodium Chloride 0.9% 250Ml [NS 250ml] 250 ml IVPB ONCE SPUTUM CULTURE Stat 10/04/16 10:10 BLOOD CULTURE Stat Laboratory Results - last 24 hr 10/04/16 10/04/16 08:25 08:42 WBC 10.6 RBC 3.63 L Hgb 11.3 L Hct 34.5 L MCV 94.9 H MCH 31.1 H MCHC 32.9 L RDW 15.8 H Plt Count 173 MPV 7.9 Absolute Neuts (auto) 9.00 H Absolute Lymphs (auto) 0.70 L Absolute Monos (auto) 0.80 Absolute Eos (auto) 0.00 Absolute Basos (auto) 0.10 Neutrophils % 84.2 H Neutrophils % (Manual) 67.0 Lymphocytes % 6.9 L Lymphocytes % (Manual) 11.0 Monocytes % 7.7 Monocytes % (Manual) 9.0 Eosinophils % 0.2 L Basophils % 1.0 Band Neutrophils 11.0 Metamyelocytes 2.0 Platelet Estimate Normal Normal RBC Morphology 1+aniso PT 44.6 H* INR 4.000 H* PTT (SP) 48.0 H Sodium 142 Potassium 3.2 L Chloride 101 Carbon Dioxide 28 Anion Gap 16.2 BUN 15 Creatinine 1.11 BUN/Creatinine Ratio 13.5 Random Glucose 96 Serum Osmolality 283.8 Calcium 8.8 Total Bilirubin 1.1 H AST 16 ALT 11 Alkaline Phosphatase 45 Creatine Kinase 49 CK-MB (CK-2) 1.8 CK-MB (CK-2) % Not Reportable Troponin I 0.06 H B-Natriuretic Peptide 748.0 H* Serum Total Protein 6.5 Albumin 3.1 L Globulin 3.4 Albumin/Globulin Ratio 0.9 L Amylase 24 L Lipase 19 L Urine Color Yellow Urine Appearance Clear Urine pH 5.0 Ur Specific Valentines 1.015 Urine Protein Negative Urine Glucose (UA) Negative Urine Ketones 40 H Urine Blood Negative Urine Nitrite Negative Urine Bilirubin Negative Urine Urobilinogen 0.2 Ur Leukocyte Esterase Negative Urine RBC 1-3 Urine WBC 0-1 Ur Epithelial Cells 0-1 Urine Bacteria 0 Hyaline Casts 1-3 Urine Mucus Small chest x-ray shows bilateral infiltrates with left greater than right. CT scan of the chest is consistent with pneumonia primarily of the left but also some scattered infiltrates on the right with some nodularity there as well but will need to be followed up. Departure - Departure Clinical Impression: Delirium due to another medical condition Pneumonia Qualifiers: Pneumonia type: due to unspecified organism Laterality: bilateral Lung location : upper lobe of lung Qualifier Code: (J18.9) Pneumonia, unspecified organism Disposition: Admit Patient Home Medications: Ambulatory Orders Dutasteride [Avodart] 0.5 mg PO .M-W-F 01/02/16 HYDROcodone 10MG/APAP 325MG [[place] 10/325] 1 ea PO 5XD PRN 01/02/16 Isosorbide Mononitrate [Isosorbide Mononitrate ER] 30 mg PO BID 01/02/16 Omeprazole [Prilosec] 40 mg PO DAILY@0700 01/02/16 Propranolol HCl 20 mg PO BID 01/02/16 Tamsulosin [Flomax] 0.4 mg PO BEDTIME 01/02/16 Calcium Carbonate-Vitamin D [Calcium 600+D 600-400 mg-Unit] 1 tab PO DAILY 01/05 Guaifenesin [Mucinex Maximum Strength] 1,200 mg PO BID 01/06/16 Furosemide [Lasix Tab] 80 mg PO DAILY 03/06/16 Albuterol Sulfate Nebs [Proventil Nebs] 2.5 mg INH PRN 08/28/16 Fluticasone/Salmeterol 250/50 [Advair Diskus] 1 puff INH BID 08/28/16 Nitroglycerin [Nitrostat] 0.4 mg SL PRN 08/28/16 Polyethylene Glycol 3350 [Miralax] 17 gm PO DAILY 08/28/16 Potassium Chloride Elixir [Kaochlor Liquid] 7.5 meq PO DAILY 08/28/16 Red Yeast Rice Extract [Red Yeast Rice] 600 mg PO TID 08/28/16 Temazepam 15 mg PO BEDTIME 08/28/16 Tiotropium [place] Monohydrate [Spiriva Handihaler] 1 puff IN DAILY 08/28/16 Warfarin Sodium 2 mg PO .--08/28/16 Warfarin Sodium [Coumadin] 4 mg PO .SA,AMANDA,TU,TH 08/28/16 Decision To Admit - Decistion To Admit Decision to Admit Reason: Medical Nature Decision to Admit Date: 10/04/16 Decision to Admit Time: 11:07
--- NOTE | 2016-10-04 11:27 | HP ---
HISTORY OF PRESENT ILLNESS: This 86-year-old, white male is admitted to the hospital via the Emergency Room where he was brought from home by EMS because of worsening shortness of breath. He has altered level of consciousness and some behavioral changes. He was trying to ambulate yesterday with his walker and got too weak and had to be helped carefully to the floor where he was on the floor, unable for the to get him up and she called 911. EMS picked him up and, unfortunately, may have cracked one of his right ribs in the process of grabbing him under his arms to elevate him. He has had worsening shortness of breath. He has been seen by Dr. Mayer, his primary care physician, on almost a weekly basis for the last 3 or 4 months because of "can' t breathe." He has been seen by Dr. Zhao, personal injury legal assistant, in the last week or 2 and we are now trying to acquire his clinical notes so we will be able to get some input from his visit. He has also been seen by dev technical mgr in [place] where he has had coronary artery bypass grafting. Earlier this morning, he had a fever at home of 103 degrees axillary. He has been on oxygen continuously for the last 4 months, showing some steady deterioration. He had bright red bleeding in his sputum earlier this morning. He has been on corticosteroid courses as well as antibiotic courses off and on for the last 4 months. Most recently, was about 3 weeks ago when he had a sputum positive for pseudomonas aeruginosum with sensitivities to the fluoroquinolones as well as Rocephin. The patient's condition has significantly worsened, now with significant pulmonary infiltrates, especially involving the left upper lobe and the right upper lobe to a lesser degree, which was not present on x-rays approximately 3 or 4 weeks ago. This suggests a significantly compromised state with significant deterioration. He does not recall having had a TB skin test in the past, nor does he recall being exposed to it. Discussion with some family members revealed that the son-in-law, who has worked as a platform operations director, has been determined to be a TB converter on skin test with a normal chest x-ray, so he did not receive a treatment course years ago. The patient is admitted to the hospital to placed on isolation and to have triple antibiotics after cultures are obtained and pulmonary support and continued evaluation. Consider transfer if condition is not improving to a pulmonary service. PAST MEDICAL HISTORY: 1. Chronic obstructive pulmonary disease, even though he has never smoked. 2. History of coronary artery disease with bypass grafting. 3. Hyperlipidemia. 4. Essential tremor. 5. Benign prostatic hypertrophy. 6. Chronic atrial fibrillation on Coumadin therapy with his INR currently being markedly prolonged. 7. Degenerative joint disease. 8. Chronic congestive heart failure with combined systolic/diastolic components with last ejection fraction being 60% in February of 2015. 9. History of hypertension. PAST SURGICAL HISTORY: 1. Hernia repair. 2. Left hip surgery in 2000. 3. Coronary artery bypass grafting, 4 vessels, in 2005 in [place]. 4. Cardiac stent placement in 2000. 5. Stent placement in the left main renal artery in 2009. 6. Kyphoplasty procedure in 2011 and again in 2015. CURRENT MEDICATIONS: Please refer to nursing notes for a list of up to date and verified home medications. ALLERGIES: PENICILLIN, NOVOCAINE AND IV DYE. FAMILY HISTORY: Positive for coronary artery disease and cancer. 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 He has not smoked. He is living at home with his . REVIEW OF SYSTEMS: GENERAL: No significant weight loss. He has had some fever and chills with temperature of 103 earlier today with definite chills even now. HEENT: Slightly decreased hearing evident. LUNGS: Significant shortness of breath upon minimal exertion, requiring oxygen therapy continuously at home for the last 4 months. Recurring cough with sputum production and bloody sputum evident. CARDIOVASCULAR: Heart tones are regular without any significant gallops. GASTROINTESTINAL: No nausea or vomiting, but decreased appetite. No diarrhea or blood in the stools. GENITOURINARY: No dysuria. EXTREMITIES: Some pedal edema evident. NEUROLOGIC: No focal weakness, but he is generally weak to the point where he is unable to ambulate by himself even with a walker before his legs give out and he ends up on the floor, as he did yesterday. He did not fall and specifically injure himself other than was injured as the EMS crew was lifting him off the floor with some right lateral rib injury pain. PHYSICAL EXAMINATION: VITAL SIGNS: Temperature 99.9. Pulse 100. Blood pressure 110/63. Pulse oximetry 88% on room air, up to 95% with 1 liter. Weight 87.1 kg. GENERAL: The patient is poorly responsive initially, then as treatment continued, he appeared to be more alert and responsive, being able to look around and respond appropriately to questioning. HEENT: Buccal mucosa is very dry. Possibility of oral thrush must be considered and treated for. NECK: Supple with no adenopathy. LUNGS: Diminished breath sounds, but especially diminished in the left upper lung field with some rhonchi bilateral mid lung kohler. CARDIOVASCULAR: Heart tones are somewhat distant, but appear to have no significant gallop rhythms with atrial fibrillation by history. ABDOMEN: Generally soft with no organomegaly or masses. EXTREMITIES: Trace of edema. NEUROLOGIC: No focal neurological deficits are noted. The patient is otherwise able to answer questions, though his is very helpful in filling in the history blanks while the patient spends most of his time with eyes closed and resting in the bed. LABORATORY: White count 10,600, yet with 11% bands, hemoglobin 11.3. INR prolonged at 4. Chemistries show potassium down to 3.2, BUN 15, creatinine 1.1 , glucose 96, bilirubin 1.1. Troponin 0.06. Beta natriuretic peptide is up 748 and albumin is 3.1. Urinalysis shows ketonuria, otherwise clean. Blood cultures pending. Influenza A/B is negative. RADIOLOGY: Chest CT exam reveals significant consolidation in the left upper lobe. The right upper lobe does have a smaller nodule area of parenchymal increased density extending to the right middle lobe. Significant pneumonia is to be considered. ASSESSMENT: 1. Acute bilateral apical pneumonia involving right and left upper lobes as well as the right middle lobe with extreme consolidation of the left upper lobe, probable community acquired infection, yet could also be intrapulmonary hemorrhage and will require specialist observation and treatment course. 2. Chronic bronchitis, recently with sputum culture positive for pseudomonas aeruginosum. 3. Chronic congestive heart failure with combined diastolic and systolic components with elevated beta natriuretic peptide of 748. 4. Chronic obstructive pulmonary disease with an acute exacerbation. 5. Hypoxia, requiring oxygen supplementation. 6. Moderate delirium state with diminished level of consciousness and some behavior changes, possibly related to his underlying significant pneumonia state. 7. Acute conjunctivitis with treatment initiated with Cipro and observation to continue. 8. History of coronary artery disease, postoperative coronary artery bypass grafting and coronary artery stents placed in [place]. 9. Prolonged INR on Coumadin with treatment initiated. 10. Chronic atrial fibrillation. 11. Chronic back pain having required kyphoplasty for pain relief. 12. Chronic benign prostatic hypertrophy. 13. Bandemia, related to the underlying infection. 14. Febrile illness. PLAN: The patient is admitted to the hospital in isolation. The patient with a history of hemoptysis and chronic cough, worsening with infiltrates especially involving both apical regions of the lungs with 4 months of recurring treatment courses of corticosteroids and antibiotics and never having had a known PPD skin test. All of these reasons will lead us to continue our investigation to rule out acid-fast bacillus infection. The patient is started on bronchial hygiene with percussion and suctioning as needed. He will have a course of Nystatin oral suspension as well as the Diflucan because of the antibiotic use. He is on Align probiotics. Await induced sputum culture to allow us to have the best specimen possible. He is going to be treated with Levaquin, azithromycin and Rocephin combined treatment. The will also have a PPD skin test checking for conversion. Arrange to get information from Dr. Zhao, personal injury legal assistant in [place], regarding the patient's recent examination. Close observation necessary. #[id number] [facility]
[2016-10-04] MEDS ORDERED: MAGNESIUM HYDROXIDE 30 ML UD PO PRN (13:22)
[2016-10-04] MEDS ORDERED: LEVALBUTEROL NEBS 1.25 MG/3 ML VIAL INH PRN (13:22)
[2016-10-04] MEDS ORDERED: SODIUM CHLORIDE 0.9% (FLUSH) 10 ML SYG IV PRN (13:22)
[2016-10-04] MEDS ORDERED: ONDANSETRON INJ 4 MG/2 ML VIAL IV PRN (13:22)
[2016-10-04] MEDS ORDERED: IV SET AND CAP CHANGE INJ INJ SCH (13:30)
[2016-10-04] MEDS ORDERED: levoFLOXacin 750MG IV 750 MG in PREMIX BAG 1 BAG IVPB SCH (13:30)
[2016-10-04] MEDS ORDERED: TUBERCULIN 5TU 5 TU/0.1 ML VIAL ID ONE (13:42)
[2016-10-04] MEDS ORDERED: PHYTONADIONE INJ 10 MG/ML AMP IM ONE (13:43)
[2016-10-04] MEDS ORDERED: traMADol HCL 50 MG TAB PO PRN (13:49)
[2016-10-04] MEDS ORDERED: KCL 20 MEQ/NS 1,000 ML IVS PRN (13:51)
[2016-10-04] MEDS ORDERED: HYDROcodone 10MG/APAP 325MG 1 EA TAB PO PRN (13:52)
[2016-10-04] MEDS ORDERED: IBUPROFEN 400 MG TAB PO PRN (13:54)
[2016-10-04] MEDS ORDERED: BIFIDOBACTERIUM INFANTIS 4 MG CAP PO SCH ×2 (14:00→16:00)
[2016-10-04] MEDS ORDERED: FLUCONAZOLE 100 MG TAB PO SCH (14:00)
[2016-10-04] MEDS: IPRATROPIUM/ALBUTEROL 3 ML VIAL INH SCH ×2 (14:00→16:04)
[2016-10-04] MEDS ORDERED: POTASSIUM CHLORIDE 10 MEQ TAB PO SCH (14:00)
[2016-10-04] MEDS ORDERED: FUROSEMIDE INJ 20 MG/2 ML VIAL ONE (14:28)
[2016-10-04] MEDS ORDERED: ISOSORBIDE MONONITRATE (IMDUR) 30 MG TAB ONE (14:29)
[2016-10-04] MEDS ORDERED: NYSTATIN SUSPENSION 5 ML UD ONE (14:29)
[2016-10-04] MEDS ORDERED: CIPROFLOXACIN 0.3% BOTH_EYES SCH (15:00)
[2016-10-04] MEDS ORDERED: OPTHALMIC BOTH_EYES SCH (15:00)
[2016-10-04 15:36] VITALS: BP 115/58; TEMP 100; O2SAT 97
[2016-10-04] MEDS ORDERED: SUCCINYLCHOLINE CHLORIDE 200 MG/10 ML VIAL ONE (15:55)
[2016-10-04] MEDS ORDERED: ISOSORBIDE MONONITRATE (IMDUR) 30 MG TAB PO SCH (16:00)
[2016-10-04] MEDS ORDERED: NYSTATIN SUSPENSION 5 ML UD MT SCH (17:00)
[2016-10-04] MEDS ORDERED: FUROSEMIDE INJ 20 MG/2 ML VIAL IV SCH (17:00)
[2016-10-04] MEDS ORDERED: VANCOMYCIN HCL INJ 1,000 MG VIAL IVPB ONE (17:02)
[2016-10-04] MEDS ORDERED: SODIUM CHLORIDE 0.9% 250ML 0 ML ONE (17:02)
[2016-10-04] MEDS ORDERED: METOPROLOL TARTRATE INJ 5 MG/5 ML VIAL IV ONE (17:08)
[2016-10-04] MEDS ORDERED: VANCOMYCIN HCL INJ 1,000 MG in SODIUM CHLORIDE 0.9% 250ML 250 ML IVPB ONE (17:09)
[2016-10-04] MEDS ORDERED: ETOMIDATE INJECTION 2 MG/ML 20ML VIAL IV ONE (17:09)
[2016-10-04] MEDS ORDERED: SODIUM CHLORIDE 0.9% 250ML 250 ML ONE (17:38)
--- NOTE | 2016-10-04 18:33 | DS ---
DISCHARGE DIAGNOSIS: 1. Acute bilateral apical pneumonia involving right and left upper lobes with extensive consolidation of the left upper lobe, probable community acquired yet possibly with immunosuppressed state because of corticosteroid use recently, yet could also be represented by intrapulmonary hemorrhage with his prolonged INR and will required specialized treatment and followup. 2. Acute cardiac dysrhythmia with ventricular tachycardia, rate of 170 requiring sedation and cardioversion after beta blockade was initiated to return back to his normal atrial fibrillation/flutter rhythm with a normal narrow complex QRS with isolated PVCs requiring further cardiac evaluation and stabilization. 3. Chronic bronchitis recently with purulent sputum with cultures pending and in fact cultures being sent to outside laboratory for AFB evaluation and culture of mycoplasma to rule it out. Recent culture positive for Pseudomonas aeruginosum sensitive to fluoroquinolone as well as Ceftriaxone medications. 4. Chronic congestive heart failure with a combined diastolic/systolic component with an elevated beta natriuretic peptide of 7[address] being followed by Dr[address] Harmon in [facility]. 5. Chronic obstructive pulmonary disease with an acute exacerbation in a gentleman who has not smoked. 6. Hypoxia requiring oxygen supplementation. 7. Moderate delirium state earlier today upon admission to the Emergency Room with diminished level of consciousness and some behavioral changes and severe weakness possibly indicative and predictive of early sepsis to be observed for. 8. Acute conjunctivitis with treatment initiated with Cipro ophthalmic with observation to continue. 9. History of coronary artery disease having had coronary artery bypass grafting as well as coronary artery stents placed in [place]. 10. Prolonged INR on Coumadin with treatment with Coumadin being held and a dose of Vitamin K having been received. 11. Chronic atrial fibrillation/flutter on beta blockade for rate control and chronic Coumadin anticoagulation. 12. Chronic back pain having required kyphoplasty for pain relief recently. 13. Chronic benign prostatic hypertrophy. 14. Acute bandemia related to the underlying infection possibly as a risk factor for early sepsis. 15. Febrile illness. HISTORY OF PRESENT ILLNESS: This 86 year-old white male was admitted to the hospital via the Emergency Room with worsening symptoms of shortness of breath, fatigue and altered loss of consciousness earlier this morning. He got so weak last evening that he was on the floor at home and was lifted up by an EMS and may have even fractured his right rib laterally, and has some discomfort in his right shoulder subsequently as well. His general condition has been getting somewhat worse over the last 3 months. His last chest x-ray about 3 weeks ago was unremarkable but his x-ray in the Emergency Room this morning shows advanced consolidation involving left upper lobe with early consolidation in the right upper lobe, and extending down to the right middle lobe regions. The patient was noted to have been on corticosteroid courses as well as repeat antibiotic courses for the last 3 months and most recently had a course of Levaquin for Pseudomonas aeruginosum in the sputum, and it was sensitive to the fluoroquinolones about 3 weeks ago. The patient's condition has not shown significant improvement. Because of the immunosuppression, the repeat antibiotic courses because of hemoptysis, the persistent cough with purulent sputum and the apical disease pattern of his abnormal pneumonia presentation, he was placed in the hospital on isolation and specimens sent to outside lab for AFB and mycoplasma culture and stains. Staff should be aware of the potential isolation importance to rule out tuberculosis. He does not recall ever having had a TB skin test and a PPB skin test was placed on him, and his also received one in the medical clinic, both of them to be read by Monday at noon at 72 hours. The patient had blood cultures obtained in the Emergency Room and was started on Rocephin and Azithromycin per pneumonia protocol. To this was added Levaquin additional coverage and then before transfer to [place] was given a gram of vancomycin because of condition showing deterioration. LABORATORY: White count of 10,600 with 11% bands, 84% neutrophils, hemoglobin 11.3 with a macrocytic hyperchromic presentation. INR is markedly prolonged at 4 and his Coumadin is held. Chemistries show potassium 3.2 and he was started on some potassium supplementation. BUN 15, creatinine 1.1, glucose 96, calcium 8.8. Liver enzymes otherwise normal. Troponin slightly elevated at 0.06, beta natriuretic peptide 748 which is elevated from his normal baseline. Albumin 3.1. Urinalysis showed ketonuria. Sputum was referred to reference lab and studies are pending, and will be communicated when received. Blood cultures are obtained. Influenza A and B negative. CT scan of the chest does reveal consolidation with air bronchograms in the left upper lobe as well as early airspace densities, nodularities in the right upper lobe and right lower lobe possibly also of an infectious inflammatory process. Followup is necessary to rule out neoplasia. These changes are new compared to about 3 weeks ago. HOSPITAL COURSE: The patient slowly showed some clinical improvement by becoming more alert and communicative since his admission to the Emergency Room. He was placed in the hospital for close observation and management. He was placed in isolation with a negative atmospheric room. He was found suddenly to have gone into a rapid rhythm with a wide QRS complex suggesting a ventricular tachycardia rate of 160 to 170 per minute. His normal rhythm is a narrow complex QRS with atrial flutter/fibrillation. His blood pressure was otherwise stable in the 120s and his pulse oximetry remained fairly good at 2.5 liters per minute, even in spite of the rapid ventricular arrhythmia. The patient apparently had skipped his morning beta blockade, so he was given Lopressor 5 mg with no effect on the ventricular tachyarrhythmias. He was given Etomidate 10 mg IV with cardioversion on synchrony was given 100 joules via paddles adhered to his chest wall which successfully converted the ventricular tachyarrhythmia to his normal atrial flutter/fibrillation at about 75 [id number]. The patient eventually was able to be fairly quickly back to his alert self, communicating and in no acute distress at that time. He was still throwing repeat PVCs which will require close observation and supportive care. PLAN: Because of the patient's deteriorating condition and the fact that we do not have a MACU or an ICU, and the patient is needing to be treated specifically for impending sepsis as well as worsening consolidation of his lung pneumonia with significant tachyarrhythmia with conduction defects, the patient will be transferred by air to [facility]. He is accepted by Dr. Lambert, hospitalist, on to the ICU where they have Dr. Harmon, Internal Control Analyst, who is working with the patient and in fact missed a clinic appointment in [place] with the tire buffer this afternoon. Recovery Analyst will also be available to assist. Condition is discussed at length with the and other family members. The patient will also receive vancomycin in transit. If wide QRS tachyarrhythmias start again, he may consider Amiodarone and re-cardioversion as needed in transit or upon arrival. The patient will require intensive care and will require specialized intervention and support. #[id number] [facility]
[2016-10-04] MEDS ORDERED: guaiFENesin ER TAB 600 MG TAB PO SCH (21:00)
[2016-10-04] MEDS ORDERED: TAMSULOSIN 0.4 MG CAP PO SCH (21:00)
[2016-10-04] MEDS ORDERED: cefTRIAXone SODIUM 1 GM in SODIUM CHL 0.9% 50ML MIN-BAG+ 50 ML IVPB SCH (21:00)
[2016-10-04] MEDS ORDERED: TEMAZEPAM 15 MG CAP PO SCH (21:00)
[2016-10-04] MEDS ORDERED: PROPRANOLOL HCL 20 MG TAB PO SCH (21:00)
[2016-10-05] MEDS ORDERED: OMEPRAZOLE CAP 20 MG CAP PO SCH ×2 (06:30)
[2016-10-05] MEDS ORDERED: TIOTROPIUM INHALER INH SCH (08:00)
[2016-10-05] MEDS ORDERED: AZITHROMYCIN 250 MG TAB PO SCH (09:00)
[2016-10-05] MEDS ORDERED: POLYETHYLENE GLYCOL 3350 17 GM PCKT PO SCH (09:00)
[2016-10-05] MEDS ORDERED: DUTASTERIDE 0.5 MG CAP PO SCH (21:00)
== END 2016-10-04 17:22 | disposition short-term general hospital (02) | DRG 190 ==
LOC: ER 07:58 → MS 11:26
PROVIDERS: ADMIT Emergency Medicine; ATTEND Emergency Medicine
DX: J44.0 Chronic obstructive pulmonary disease with (acute) lower respiratory infection (principal); J18.9 Pneumonia, unspecified organism; I50.42 Chronic combined systolic (congestive) and diastolic (congestive) heart failure; R04.2 Hemoptysis; F05 Delirium due to known physiological condition; R04.89 Hemorrhage from other sites in respiratory passages; I47.2 Ventricular tachycardia; I48.92 Unspecified atrial flutter; J44.1 Chronic obstructive pulmonary disease with (acute) exacerbation; I11.0 Hypertensive heart disease with heart failure; T45.515A Adverse effect of anticoagulants, initial encounter; Y92.009 Unspecified place in unspecified non-institutional (private) residence as the place of occurrence of the external cause; R09.02 Hypoxemia; H10.30 Unspecified acute conjunctivitis, unspecified eye; I25.10 Atherosclerotic heart disease of native coronary artery without angina pectoris; R79.1 Abnormal coagulation profile; I48.2 Chronic atrial fibrillation; N40.0 Benign prostatic hyperplasia without lower urinary tract symptoms; K21.9 Gastro-esophageal reflux disease without esophagitis; E78.5 Hyperlipidemia, unspecified; G25.0 Essential tremor; M19.90 Unspecified osteoarthritis, unspecified site; I25.2 Old myocardial infarction; Z95.828 Presence of other vascular implants and grafts; Z88.0 Allergy status to penicillin; Z95.1 Presence of aortocoronary bypass graft; Z88.4 Allergy status to anesthetic agent; Z91.041 Radiographic dye allergy status; Z95.5 Presence of coronary angioplasty implant and graft; Z79.891 Long term (current) use of opiate analgesic; Z79.51 Long term (current) use of inhaled steroids; Z79.01 Long term (current) use of anticoagulants; Z79.899 Other long term (current) drug therapy

== ENCOUNTER 2016-10-25 15:47 | Emergency (ER) | payer MEDICARE ==
--- NOTE | 2016-10-25 16:18 | RAD ---
PROCEDURE: XR CHEST 1 VIEW HISTORY: transient low bp, recent defibrillator placed. COMPARISON: 09/10/2016 TECHNIQUE: Single projection of the chest was done. FINDINGS: Note is again made of median sternotomy. The tip of the unipolar left-sided pacemaker wire terminates in the expected location of the right ventricle, in good position. Chronic mild prominence of the interstitium is again seen in the bilateral lung kohler . There are no discrete airspace infiltrates, pneumothoraces or pleural effusions. The pulmonary vascularity is normal. The cardiomediastinal silhouette is stable. IMPRESSION: There is no acute pleural-parenchymal process seen in the imaged lung kohler. The tip of the unipolar left-sided pacemaker wire terminates in the expected location of the right ventricle, in good position. Electronically signed by: Bj Lock MD 10/25/2016 4:18 PM CDT
[2016-10-25] MEDS ORDERED: MORPHINE SULFATE INJ 10 MG/ML VIAL IV ONE (17:03)
[2016-10-25] MEDS ORDERED: SODIUM CHLORIDE 0.9% 1000ML 750 ML IVS ONE (17:08)
--- NOTE | 2016-10-25 20:44 | ED.PDOC ---
History of Present Illness - General Chief Complaint: Cardiovascular Problem Stated Complaint: low bp and irregular heart rate Time Seen by Provider: 10/25/16 15:53 Source: patient, family, group home records Exam Limitations: no limitations - History of Present Illness Initial Comments: the patient is an 86-year-old male with a history of congestive heart failure and recent history of pneumonia that was doing rehabilitation at an inpatient facility when he had an episode of low blood pressure with systolic blood pressure dropping down into the 70s. He did not pass out but did feel a little bit weak. Historically he does normally have some low normal blood pressures. He takes amiodarone, metolazone and 2 forms of nitrates currently. Systolic blood pressures here have ranged from 85-110. The patient does have atrial fibrillation and is very well rate controlled with a heart rate between 50 and 70 currently. No fevers. No shortness of breath. No productive sputum. No dysuria. No nausea or vomiting. Timing/Duration: momentarily Severity: mild Improving Factors: nothing Worsening Factors: nothing Associated Symptoms: malaise Allergies/Adverse Reactions: Allergies Penicillin G Allergy (Verified 10/25/16 16:06) Procaine [From Novocain] Allergy (Verified 10/25/16 16:06) IVP dye Allergy (Uncoded 10/25/16 16:06) Home Medications: Ambulatory Orders Dutasteride [Avodart] 0.5 mg PO .M-W-F 01/02/16 HYDROcodone 10MG/APAP 325MG [[place] 10/325] 1 ea PO 5XD PRN 01/02/16 Isosorbide Mononitrate [Isosorbide Mononitrate ER] 30 mg PO BID 01/02/16 Omeprazole [Prilosec] 40 mg PO DAILY@0700 01/02/16 Propranolol HCl 20 mg PO BID 01/02/16 Tamsulosin [Flomax] 0.4 mg PO BEDTIME 01/02/16 Calcium Carbonate-Vitamin D [Calcium 600+D 600-400 mg-Unit] 1 tab PO DAILY 01/05 Guaifenesin [Mucinex Maximum Strength] 1,200 mg PO BID 01/06/16 Furosemide Tab [Lasix Tab] 80 mg PO DAILY 03/06/16 Albuterol Sulfate Nebs [Proventil Nebs] 2.5 mg INH Q8H PRN 08/28/16 Fluticasone/Salmeterol 250/50 [Advair Diskus] 1 puff INH BID 08/28/16 Nitroglycerin [Nitrostat] 0.4 mg SL PRN 08/28/16 Polyethylene Glycol 3350 [Miralax] 17 gm PO DAILY 08/28/16 Potassium Chloride Elixir [Kaochlor Liquid] 7.5 meq PO DAILY 08/28/16 Red Yeast Rice Extract [Red Yeast Rice] 600 mg PO TID 08/28/16 Temazepam 15 mg PO BEDTIME 08/28/16 Tiotropium [place] Monohydrate [Spiriva Handihaler] 1 puff IN DAILY 08/28/16 Warfarin Sodium [Coumadin] 4 mg PO .SA,AMANDA,TU,TH 08/28/16 Warfarin Sodium 2 mg PO MOWEFR 10/04/16 Review of Systems - Review of Systems Constitutional: States: malaise EENTM: States: no symptoms reported Respiratory: States: no symptoms reported Cardiology: States: no symptoms reported Gastrointestinal/Abdominal: States: no symptoms reported Genitourinary: States: no symptoms reported Musculoskeletal: States: no symptoms reported, back pain - chronic Skin: States: no symptoms reported Neurological: States: weakness Endocrine: States: no symptoms reported - generalized All other Systems: No Change from Baseline Past Medical History (General) - Patient Medical History Hx Seizures: No Hx Stroke: No Hx Dementia: No Hx Asthma: No Hx of COPD: Yes Hx Cardiac Disorders: Yes - A-fib Hx Congestive Heart Failure: Yes Hx Pacemaker: No Hx Hypertension: Yes Hx Thyroid Disease: No Hx Diabetes: No Hx Gastroesophageal Reflux: Yes Hx Renal Disease: No Hx Cancer: No Hx of HIV: No Hx Hepatitis C: No Hx MRSA: No - Vaccination History Hx Tetanus, Diphtheria Vaccination: No Hx Influenza Vaccination: Yes - 2016 Hx Pneumococcal Vaccination: Yes - 2016 - Social History Hx Tobacco Use: No Hx Alcohol Use: No Hx Substance Use: No Hx Substance Use Treatment: No Hx Depression: No Hx Physical Abuse: No Hx Emotional Abuse: No - Activities of Daily Living Care Home/Assisted Living (if applicable):: [facility] Agency (if applicable):: None - Female History Patient is a Female of Child Bearing Age (10 -59 yrs old): No Patient : No Family Medical History - Family History Mother Family History: Unknown Living Status: Age at (years of age): 85 Cause of : cardiac Hx Cardiac Disease: Yes - both parents Physical Exam - Physical Exam General Appearance: Alert, Comfortable, Frail - chronically, No apparent distress, Other - the patient is alert and oriented and in no distress. Initial blood pressure upon arrival by EMS had a systolic blood pressure 120. The patient is alert and mentating and giving us good medical history. Eye Exam: bilateral normal Ears, Nose, Throat: hearing grossly normal, normal ENT inspection, normal pharynx Neck: non-tender, full range of motion, supple Respiratory: chest non-tender, lungs clear, normal breath sounds, no respiratory distress, no accessory muscle use Cardiovascular/Chest: normal peripheral pulses, no edema, other - regular rate but irregular rhythm Peripheral Pulses: radial,right: 2+, radial,left: 2+, dorsalis pedis,right: 1+, dorsalis pedis,left: 1+ Gastrointestinal/Abdominal: non tender, soft Rectal Exam: deferred Back Exam: no CVA tenderness Extremity: normal range of motion, non-tender, normal inspection, no pedal edema , normal capillary refill Neurologic: vp emerging media II-XII nml as tested, alert, normal mood/affect, oriented x 3 Skin Exam: pallor Comments: Vital Signs - 24 hr 10/25/16 10/25/16 10/25/16 15:50 16:07 16:49 Temperature 97.6 F Pulse Rate [ 66 69 59 L pulse ox] Respiratory 18 16 Rate Blood Pressure 101/72 85/54 [Right Arm] O2 Sat by Pulse 98 99 Oximetry 10/25/16 10/25/16 10/25/16 17:19 18:12 19:05 Temperature 97.5 F L Pulse Rate [ 64 61 62 pulse ox] Respiratory 20 20 12 Rate Blood Pressure 88/54 94/63 91/56 [Right Arm] O2 Sat by Pulse 98 97 99 Oximetry Progress - Progress Progress: 10/25/16 20:45 the patient is a 86-year-old male presenting to emergency room secondary to episode of hypotension. The patient does have some low normal blood pressures at baseline. Lab work here is reassuring. The patient's clinical picture is reassuring. Going to recommend at this time that his metolazone be decreased to 2.5 mg each morning and the nitroglycerin patch be discontinued. If his hypotension persists in spite of this then consideration should be given to reducing the amiodarone dose as he is mildly bradycardic at times. I see no evidence of overt infection or sepsis at this time. The patient will be transferred back to the shelter facility for continued rehabilitation. He did receive a small IV fluid bolus. ER warnings were given. He should follow up with the facility doctor before the end of the week. Twice-daily blood pressures and heart rates should be checked. Every other day weights should be taken. 10/25/16 20:49 - Results/Orders Results/Orders: Laboratory Tests 10/25/16 10/25/16 10/25/16 16:10 16:10 16:10 WBC 7.9 RBC 3.26 L Hgb 9.9 L Hct 30.6 L MCV 94.0 MCH 30.3 MCHC 32.5 L RDW 16.4 H Plt Count 132 MPV 7.7 Absolute Neuts (auto) 6.30 Absolute Lymphs (auto) 0.80 L Absolute Monos (auto) 0.60 Absolute Eos (auto) 0.10 Absolute Basos (auto) 0.10 Neutrophils % 79.8 H Lymphocytes % 9.9 L Monocytes % 7.6 Eosinophils % 1.8 Basophils % 0.9 PT 66.4 H* INR 6.000 H* PTT (SP) 53.3 H Sodium 136 Potassium 3.6 Chloride 99 L Carbon Dioxide 29 Anion Gap 11.6 L BUN 18 Creatinine 1.19 BUN/Creatinine Ratio 15.1 Random Glucose 102 Serum Osmolality 274.1 L Calcium 8.4 Magnesium 2.1 Total Bilirubin 0.6 AST 17 ALT 20 Alkaline Phosphatase 70 Creatine Kinase 11 L CK-MB (CK-2) 1.3 CK-MB (CK-2) % Not Reportable Troponin I 0.03 B-Natriuretic Peptide 458.0 H* Serum Total Protein 5.8 L Albumin 3.0 L Globulin 2.8 Albumin/Globulin Ratio 1.1 Urine Color Urine Appearance Urine pH Ur Specific [place] Urine Protein Urine Glucose (UA) Urine Ketones Urine Blood Urine Nitrite Urine Bilirubin Urine Urobilinogen Ur Leukocyte Esterase Urine RBC Urine WBC Ur Epithelial Cells Urine Bacteria Hyaline Casts Urine Mucus 10/25/16 19:55 WBC RBC Hgb Hct MCV MCH MCHC RDW Plt Count MPV Absolute Neuts (auto) Absolute Lymphs (auto) Absolute Monos (auto) Absolute Eos (auto) Absolute Basos (auto) Neutrophils % Lymphocytes % Monocytes % Eosinophils % Basophils % PT INR PTT (SP) Sodium Potassium Chloride Carbon Dioxide Anion Gap BUN Creatinine BUN/Creatinine Ratio Random Glucose Serum Osmolality Calcium Magnesium Total Bilirubin AST ALT Alkaline Phosphatase Creatine Kinase CK-MB (CK-2) CK-MB (CK-2) % Troponin I B-Natriuretic Peptide Serum Total Protein Albumin Globulin Albumin/Globulin Ratio Urine Color Yellow Urine Appearance Clear Urine pH 5.5 Ur Specific [place] 1.015 Urine Protein Negative Urine Glucose (UA) Negative Urine Ketones Negative Urine Blood Negative Urine Nitrite Negative Urine Bilirubin Negative Urine Urobilinogen 0.2 Ur Leukocyte Esterase Negative Urine RBC 0 Urine WBC 0-1 Ur Epithelial Cells 0-1 Urine Bacteria 1+ Hyaline Casts 0-1 Urine Mucus Moderate chest x-ray is reassuring. No evidence of overt fluid overload. No obvious new infiltrates. EKG shows atrial fibrillation with good rate control with occasional PVCs. There are Q waves in lead 3. These are not new. No acute ST segment changes concerning for ischemia. QT length is within normal limits. Departure - Departure Clinical Impression: Hypotension, iatrogenic Disposition: Discharge to SNF Condition: Fair Departure Forms: ED Discharge - Pt. Copy, Patient Portal Self Enrollment Instructions: DI for Hypotension Diet: regular diet Activity: increase activity as tolerated Referrals: Philip Mayer MD [Primary Care Provider] - 1-2 Weeks Home Medications: Ambulatory Orders Dutasteride [Avodart] 0.5 mg PO .M-W-F 01/02/16 HYDROcodone 10MG/APAP 325MG [[place] 10/325] 1 ea PO 5XD PRN 01/02/16 Isosorbide Mononitrate [Isosorbide Mononitrate ER] 30 mg PO BID 01/02/16 Omeprazole [Prilosec] 40 mg PO DAILY@0700 01/02/16 Propranolol HCl 20 mg PO BID 01/02/16 Tamsulosin [Flomax] 0.4 mg PO BEDTIME 01/02/16 Calcium Carbonate-Vitamin D [Calcium 600+D 600-400 mg-Unit] 1 tab PO DAILY 01/05 Guaifenesin [Mucinex Maximum Strength] 1,200 mg PO BID 01/06/16 Furosemide Tab [Lasix Tab] 80 mg PO DAILY 03/06/16 Albuterol Sulfate Nebs [Proventil Nebs] 2.5 mg INH Q8H PRN 08/28/16 Fluticasone/Salmeterol 250/50 [Advair Diskus] 1 puff INH BID 08/28/16 Nitroglycerin [Nitrostat] 0.4 mg SL PRN 08/28/16 Polyethylene Glycol 3350 [Miralax] 17 gm PO DAILY 08/28/16 Potassium Chloride Elixir [Kaochlor Liquid] 7.5 meq PO DAILY 08/28/16 Red Yeast Rice Extract [Red Yeast Rice] 600 mg PO TID 08/28/16 Temazepam 15 mg PO BEDTIME 08/28/16 Tiotropium [place] Monohydrate [Spiriva Handihaler] 1 puff IN DAILY 08/28/16 Warfarin Sodium [Coumadin] 4 mg PO .SA,AMANDA,,08/28/16 Warfarin Sodium 2 mg PO MOWEFR 10/04/16 Additional Instructions: the patient is a 86-year-old male presenting to emergency room secondary to episode of hypotension. The patient does have some low normal blood pressures at baseline. Lab work here is reassuring. The patient's clinical picture is reassuring. Going to recommend at this time that his metolazone be decreased to 2.5 mg each morning and the nitroglycerin patch be discontinued. If his hypotension persists in spite of this then consideration should be given to reducing the amiodarone dose as he is mildly bradycardic at times. I see no evidence of overt infection or sepsis at this time. The patient will be transferred back to the shelter facility for continued rehabilitation. He did receive a small IV fluid bolus. ER warnings were given. He should follow up with the facility doctor before the end of the week. Twice-daily blood pressures and heart rates should be checked. Every other day weights should be taken.
[2016-10-25 23:04] VITALS: BP 112/69; TEMP 97.2; O2SAT 97
== END 2016-10-25 22:50 ==
LOC: ER 15:47
DX: I95.89 Other hypotension (principal); J44.9 Chronic obstructive pulmonary disease, unspecified; I48.91 Unspecified atrial fibrillation; I11.0 Hypertensive heart disease with heart failure; I50.9 Heart failure, unspecified; K21.9 Gastro-esophageal reflux disease without esophagitis; Z79.01 Long term (current) use of anticoagulants; Z79.899 Other long term (current) drug therapy; Z88.0 Allergy status to penicillin; Z88.8 Allergy status to other drugs, medicaments and biological substances; Z91.041 Radiographic dye allergy status
CPT/HCPCS: 36415; 71010; 80053; 81001; 82550; 82553; 83735; 83880; 84484; 85025; 85610; 85730; 93005; J7030

== ENCOUNTER → 2017-03-02 | Outpatient (CLI) | payer MEDICARE ==
--- NOTE | 2017-03-03 12:06 | CT ---
EXAM DESCRIPTION: Pelvis CLINICAL HISTORY: 87 years Male, PAIN IN RIGHT HIP COMPARISON: None. TECHNIQUE: Transaxial images were obtained without intravenous or oral contrast media. Sagittal and coronal reconstruction was performed.This exam was performed according to our departmental dose-optimization program, which includes automated exposure control, adjustment of the mA and/or kV according to patient size and/or use of iterative reconstruction technique. FINDINGS: Calcific atherosclerotic changes observed in the abdominal aorta without evidence of aneurysmal dilatation. No free fluid is observed. Diverticulosis of the rectosigmoid colon is noted. Moderate artifact is observed from a left hip arthroplasty. No inguinal region abnormality is seen. Examination of the right hip reveals moderately severe degenerative arthritis in the hip area no evidence of a fracture is seen. Subchondral cyst formation is observed in the humeral head. Is also some deformity of the humeral head. Inferior humeral head osteophyte formation is observed. There is also some inferior acetabular osteophyte formation. Subchondral cyst formation is also observed in the anterior aspect of the acetabulum. Degenerative changes are observed in the lower lumbar spine. There is evidence of a L4 vertebral body augmentation. IMPRESSION: 1. 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 2. 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 3. L4 vertebral body augmentation. 4. Uncomplicated diverticulosis of the colon Electronically signed by: Chandler Dennis MD 03/03/2017 12:04 PM CDT
== END ==
LOC: MRI 12:53
PROVIDERS: ATTEND Family Medicine
DX: M25.551 Pain in right hip (principal); M16.11 Unilateral primary osteoarthritis, right hip; Z96.642 Presence of left artificial hip joint

== ENCOUNTER 2017-04-30 23:04 | Emergency (ER) | payer MEDICARE ==
[2017-04-30 23:25] VITALS: TEMP 98.4
--- NOTE | 2017-04-30 23:31 | ED.PDOC ---
History of Present Illness - General Chief Complaint: Cardiovascular Problem Stated Complaint: chest pain Time Seen by Provider: 04/30/17 23:08 Source: patient, RN notes reviewed, Vital Signs reviewed, EMS Exam Limitations: no limitations - History of Present Illness Initial Comments: Patient sent to ER via EMS by [facility] due to a rapid heart rate. Reports his pulse was 140 and he was having some mild L chest pain. Patient thinks he just over did it on the treadmill today while exercising. Reports he had similar symptoms yesterday after exercising. He finished exercising around 17: 00. [place] like he over did it and sat in his walker. That is when he developed some mild L chest soreness near his pacemaker. Had some exercise induced SOB that rapidly resolved but the chest soreness stayed until nurse gave him a SLNTG tonight. That resolved his chest soreness. No nausea. No diaphoresis. Now he feels fine and pulse is back in the 70's & 80's. Timing/Duration: 4-6 hours Severity: mild Location: other - L upper, anterior chest Activities at Onset: activity - had just finished exercising on treadmill Prior Chest Pain/Cardiac Workup: angina, cardiac cath, heart attack, other - CHF , A. fib, Pacemaker/Defibrillator Improving Factors: medication - SLNTG, rest Worsening Factors: nothing Nitro Today/Relief: 0.4 mg x 1, provided at home, complete relief Aspirin Treatment Today: no aspirin today - On Warfarin Associated Symptoms: chest pain, nausea/vomiting Allergies/Adverse Reactions: Allergies Penicillin G Allergy (Verified 04/30/17 23:25) Procaine [From Novocain] Allergy (Verified 04/30/17 23:25) IVP dye Allergy (Uncoded 04/30/17 23:25) Home Medications: Ambulatory Orders Dutasteride [Avodart] 0.5 mg PO .M-W-F 01/02/16 HYDROcodone 10MG/APAP 325MG [[place] 10/325] 1 ea PO 5XD PRN 01/02/16 Isosorbide Mononitrate [Isosorbide Mononitrate ER] 30 mg PO BID 01/02/16 Omeprazole [Prilosec] 40 mg PO DAILY@0700 01/02/16 Propranolol HCl 20 mg PO BID 01/02/16 Tamsulosin [Flomax] 0.4 mg PO BEDTIME 01/02/16 Calcium Carbonate-Vitamin D [Calcium 600+D 600-400 mg-Unit] 1 tab PO DAILY 01/05 Guaifenesin [Mucinex Maximum Strength] 1,200 mg PO BID 01/06/16 Furosemide Tab [Lasix Tab] 80 mg PO DAILY 03/06/16 Albuterol Sulfate Nebs [Proventil Nebs] 2.5 mg INH Q8H PRN 08/28/16 Fluticasone/Salmeterol 250/50 [Advair Diskus] 1 puff INH BID 08/28/16 Nitroglycerin [Nitrostat] 0.4 mg SL PRN 08/28/16 Polyethylene Glycol 3350 [Miralax] 17 gm PO DAILY 08/28/16 Potassium Chloride Elixir [Kaochlor Liquid] 7.5 meq PO DAILY 08/28/16 Red Yeast Rice Extract [Red Yeast Rice] 600 mg PO TID 08/28/16 Temazepam 15 mg PO BEDTIME 08/28/16 Tiotropium [place] Monohydrate [Spiriva Handihaler] 1 puff IN DAILY 08/28/16 Warfarin Sodium [Coumadin] 4 mg PO .SA,AMANDA,TU,TH 08/28/16 Warfarin Sodium 2 mg PO MOWEFR 10/04/16 Review of Systems - Review of Systems Constitutional: States: no symptoms reported EENTM: States: no symptoms reported Respiratory: States: no symptoms reported, short of breath. Denies: cough Cardiology: States: see HPI, chest pain. Denies: edema, palpitations, syncope Gastrointestinal/Abdominal: States: see HPI, nausea. Denies: abdominal pain, vomiting Musculoskeletal: States: no symptoms reported Skin: States: no symptoms reported Neurological: States: no symptoms reported. Denies: headache All other Systems: No Change from Baseline Past Medical History (General) - Patient Medical History Hx Seizures: No Hx Stroke: No Hx Dementia: No Hx Asthma: No Hx of COPD: Yes Hx Cardiac Disorders: Yes - A-fib Hx Congestive Heart Failure: Yes Hx Pacemaker: No Hx Hypertension: Yes Hx Thyroid Disease: No Hx Diabetes: No Hx Gastroesophageal Reflux: Yes Hx Renal Disease: No Hx Cancer: No Hx of HIV: No Hx Hepatitis C: No Hx MRSA: No Surgical History: pacemaker, other - Vaccination History Hx Tetanus, Diphtheria Vaccination: No Hx Influenza Vaccination: Yes Hx Pneumococcal Vaccination: Yes - Social History Hx Tobacco Use: No Hx Alcohol Use: No Hx Substance Use: No Hx Substance Use Treatment: No Hx Depression: No Hx Physical Abuse: No Hx Emotional Abuse: No Hx Suspected Abuse: No - Activities of Daily Living Long Term/Assisted Living (if applicable):: [facility] - Female History Patient : No Family Medical History - Family History Mother Family History: Unknown Living Status: Age at (years of age): 85 Cause of : cardiac Hx Cardiac Disease: Yes - both parents Physical Exam - Physical Exam General Appearance: Alert, Comfortable, No apparent distress, Well Developed, Well Groomed, Well Hydrated, Well Nourished Neck: non-tender, full range of motion, supple, normal inspection Respiratory: lungs clear, normal breath sounds, no respiratory distress, no accessory muscle use Cardiovascular/Chest: normal peripheral pulses, no edema, no gallop, no JVD, no murmur, irregularly irregular Peripheral Pulses: radial,right: 2+, radial,left: 2+, dorsalis pedis,right: 1+, dorsalis pedis,left: 1+ Extremity: normal range of motion, non-tender, normal inspection, no pedal edema Neurologic: alert, normal mood/affect, oriented x 3 Skin Exam: normal color, warm/dry Comments: Vital Signs 04/30/17 23:05 Temperature 98.4 F Pulse Rate 88 Pulse Rate [ 96 H monitor] Respiratory 16 Rate Blood Pressure 107/65 [Left Arm] O2 Sat by Pulse 97 Oximetry Progress - Progress Progress: 04/30/17 23:57 Labs show an elevated BUN and Creatinine compared to prior visits. Will given 1L NS bolus. Otherwise labs are benign. - Results/Orders Results/Orders: Laboratory Tests 04/30/17 04/30/17 04/30/17 22:55 22:55 22:55 WBC 10.0 RBC 4.09 L Hgb 12.1 L Hct 36.1 L MCV 88.3 MCH 29.5 MCHC 33.4 RDW 19.3 H Plt Count 186 MPV 7.4 Absolute Neuts (auto) 9.40 H Absolute Lymphs (auto) 0.20 L Absolute Monos (auto) 0.40 Absolute Eos (auto) 0.00 Absolute Basos (auto) 0.00 Neutrophils % 94.2 H Lymphocytes % 1.6 L Monocytes % 3.9 Eosinophils % 0.0 L Basophils % 0.3 Normal RBC Morphology 2+aniso PT 48.3 H* INR 4.340 H* PTT (SP) 35.9 Sodium 133 L Potassium 4.1 Chloride 94 L Carbon Dioxide 27 Anion Gap 16.1 BUN 55 H Creatinine 1.87 H BUN/Creatinine Ratio 29.4 H Random Glucose 142 H Serum Osmolality 283.9 Calcium 8.7 Total Bilirubin 0.7 AST 22 ALT 27 Alkaline Phosphatase 68 Creatine Kinase 14 L CK-MB (CK-2) 1.7 CK-MB (CK-2) % Not Reportable Troponin I 0.03 B-Natriuretic Peptide 169.0 H Serum Total Protein 6.4 Albumin 3.2 Globulin 3.2 Albumin/Globulin Ratio 1.0 L - EKG/XRAY/CT EKG: Atrial, Fibrillation, nonspecific ST T wave Chg, Unchanged from - 10/25/16 Comments: Rate 88 bpm XRAY: chest - Vague opacity L mid lung - rec follow up CXR per Rad Departure - Departure Clinical Impression: Dehydration, moderate, Acute renal insufficiency, Atrial fibrillation with normal ventricular rate, Abnormal chest x-ray Time of Disposition: 01:38 Disposition: Discharge to Home or Self Care Condition: Good Departure Forms: ED Discharge - Pt. Copy, Patient Portal Self Enrollment Instructions: DI for Dehydration -- Adult, DI for Kidney Failure Diet: resume usual diet, other - Increase water intake Activity: increase activity as tolerated Referrals: Philip Mayer MD [Primary Care Provider] - 1-5 Days (Repeat CXR due to vague opacity seen in L mid lung Repeat BUN and Creatinine due to acute renal insuf due to dehydration) Home Medications: Ambulatory Orders Dutasteride [Avodart] 0.5 mg PO .M-W-01/02/16 HYDROcodone 10MG/APAP 325MG [[place] 10/325] 1 ea PO 5XD PRN 01/02/16 Isosorbide Mononitrate [Isosorbide Mononitrate ER] 30 mg PO BID 01/02/16 Omeprazole [Prilosec] 40 mg PO DAILY@0700 01/02/16 Propranolol HCl 20 mg PO BID 01/02/16 Tamsulosin [Flomax] 0.4 mg PO BEDTIME 01/02/16 Calcium Carbonate-Vitamin D [Calcium 600+D 600-400 mg-Unit] 1 tab PO DAILY 01/05 Guaifenesin [Mucinex Maximum Strength] 1,200 mg PO BID 01/06/16 Furosemide Tab [Lasix Tab] 80 mg PO DAILY 03/06/16 Albuterol Sulfate Nebs [Proventil Nebs] 2.5 mg INH Q8H PRN 08/28/16 Fluticasone/Salmeterol 250/50 [Advair Diskus] 1 puff INH BID 08/28/16 Nitroglycerin [Nitrostat] 0.4 mg SL PRN 08/28/16 Polyethylene Glycol 3350 [Miralax] 17 gm PO DAILY 08/28/16 Potassium Chloride Elixir [Kaochlor Liquid] 7.5 meq PO DAILY 08/28/16 Red Yeast Rice Extract [Red Yeast Rice] 600 mg PO TID 08/28/16 Temazepam 15 mg PO BEDTIME 08/28/16 Tiotropium [place] Monohydrate [Spiriva Handihaler] 1 puff IN DAILY 08/28/16 Warfarin Sodium [Coumadin] 4 mg PO .SA,AMANDA,TU,TH 08/28/16 Warfarin Sodium 2 mg PO MOWEFR 10/04/16
--- NOTE | 2017-04-30 23:42 | RAD ---
EXAM DESCRIPTION: Chest,1 View CLINICAL HISTORY: chest pain/tachycardia COMPARISON: None FINDINGS: Cardiac silhouette is within normal limits. Patient is status post median sternotomy and CABG. There is atherosclerosis. Pacer leads project over the heart. EKG leads project over the chest. Vague opacity at the left mid lung could represent summation of shadows versus atelectasis, early infectious process cannot be excluded. Recommend follow-up. There is no acute osseous process visualized. IMPRESSION: Vague opacity at the left mid lung could represent summation of shadows versus atelectasis, early infectious process cannot be excluded. Recommend follow-up Electronically signed by: Navjot Jerez MD 04/30/2017 11:41 PM MAKING MACHINE OPERATOR
[2017-04-30] MEDS ORDERED: SODIUM CHLORIDE 0.9% 1000ML 1,000 ML IVS ONE (23:53)
[2017-05-01 01:21] VITALS: O2SAT 99
[2017-05-01 01:50] VITALS: BP 124/72
== END 2017-05-01 02:22 | disposition home or self-care (01) ==
LOC: ER 23:04
DX: I48.91 Unspecified atrial fibrillation (principal); E86.0 Dehydration; N28.9 Disorder of kidney and ureter, unspecified; R91.8 Other nonspecific abnormal finding of lung field; J44.9 Chronic obstructive pulmonary disease, unspecified; I11.0 Hypertensive heart disease with heart failure; I50.9 Heart failure, unspecified; Z95.0 Presence of cardiac pacemaker; Z79.899 Other long term (current) drug therapy; Z79.01 Long term (current) use of anticoagulants; Z88.0 Allergy status to penicillin; Z88.4 Allergy status to anesthetic agent; Z91.041 Radiographic dye allergy status
CPT/HCPCS: 36415; 71010; 80053; 82550; 82553; 83880; 84484; 85025; 85610; 85730; 93005; J7030

== ENCOUNTER → 2017-05-26 | Outpatient (CLI) | payer MEDICARE | LOC: GOCC 22:47 | PROVIDERS: ATTEND Family Medicine | DX: R30.0 Dysuria (principal) ==

== ENCOUNTER 2017-09-07 19:53 | Emergency (ER) | payer MEDICARE ==
--- NOTE | 2017-09-07 20:43 | RAD ---
PROCEDURE: Clavicle,Left CLINICAL HISTORY: fall with pain INDICATION: Same as above COMPARISON: X-ray of the left shoulder done on the same day . TECHNIQUE: 3.0 Views of the left clavicle were done. FINDINGS: There is no evidence of acute fractures or dislocation involving the left clavicle. The left acromioclavicular joint does not show any evidence of AC joint separation. The acromioclavicular joint shows mild degenerative change. The sternoclavicular joint is intact. The visualized soft tissues are radiographically unremarkable. There is no visualization of any radiopaque foreign bodies in the evaluated soft tissues. IMPRESSION: Negative for acute bony trauma involving the left clavicle Place of interpretation: Teleradiology. Electronically signed by: Bj Lock MD 09/07/2017 8:41 PM CDT Workstation: [id number]
--- NOTE | 2017-09-07 20:44 | RAD ---
PROCEDURE: Shoulder,Left 2 or More Views Clinical History: fall with pain Indication: Same as above Comparison: CT of the left clavicle done on the same day . Technique: 2.0 views of the left shoulder were done. Findings: There is no visualization of acute fractures or dislocations involving the bones of the left shoulder joint. Degenerative changes seen in the left glenohumeral joint in the left AC joint. The left-sided ribs and scapula are intact Impression: Negative for acute bony trauma involving the left shoulder joint . Place of interpretation: [id number]. Electronically signed by: Bj oLck MD 09/07/2017 8:42 PM CDT Workstation: [id number]
--- NOTE | 2017-09-07 20:49 | RAD ---
EXAM DESCRIPTION: Chest,1 View CLINICAL HISTORY: 87 years Male, fall with left shoulder pain COMPARISON: April 30, 2017. FINDINGS: Poststernotomy changes and a left subclavian transvenous pacemaker/AICD device are again noted. Cardiac silhouette is accentuated by technique, not grossly changed since the last exam. There is atherosclerotic change in the thoracic aorta. Pulmonary vascular and interstitial markings may be slightly increased, suggesting possible mild interstitial edema. No evidence of gross alveolar pulmonary edema. The area of previously noted faint parenchymal density in the left lateral midlung is partially obscured by the pacemaker battery pack. No definite progressive infiltrate. No pneumothorax is seen on this upright portable AP film. The lung apices are partially obscured by the patient's chin and lower face. Slight degenerative changes are noted in the left shoulder. IMPRESSION: Possible mild interstitial congestive change. Otherwise, no evidence of acute cardiopulmonary disease. Electronically signed by: Ori Granger MD 09/07/2017 8:47 PM CDT
--- NOTE | 2017-09-07 20:58 | ED.PDOC ---
History of Present Illness - General Chief Complaint: Upper Extremity Injury Stated Complaint: Left shoulder and neck pain Time Seen by Provider: 09/07/17 20:11 Source: patient Exam Limitations: no limitations - History of Present Illness Initial Comments: the patient's and 87-year-old male presenting to the emergency room secondary toa fall at the senior living giving him left shoulder pain with movement. 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 He is working with therapy already. There is no visible or palpable deformity. No laceration or bruising. He appears to be neurologically at his baseline. Passive range of motion appears preserved. Active range of motion of the shoulder seems to be what causes pain Timing/Duration: unsure Severity: moderate Improving Factors: immobilization Worsening Factors: movement Associated Symptoms: denies symptoms Allergies/Adverse Reactions: Allergies Penicillin G Allergy (Verified 04/30/17 23:25) Procaine [From Novocain] Allergy (Verified 04/30/17 23:25) IVP dye Allergy (Uncoded 04/30/17 23:25) Home Medications: Ambulatory Orders Dutasteride [Avodart] 0.5 mg PO .M-W-F 01/02/16 HYDROcodone 10MG/APAP 325MG [[place] 10/325] 1 ea PO 5XD PRN 01/02/16 Isosorbide Mononitrate [Isosorbide Mononitrate ER] 30 mg PO BID 01/02/16 Omeprazole [Prilosec] 40 mg PO DAILY@0700 01/02/16 Propranolol HCl 20 mg PO BID 01/02/16 Tamsulosin [Flomax] 0.4 mg PO BEDTIME 01/02/16 Calcium Carbonate-Vitamin D [Calcium 600+D 600-400 mg-Unit] 1 tab PO DAILY 01/05 Guaifenesin [Mucinex Maximum Strength] 1,200 mg PO BID 01/06/16 Furosemide Tab [Lasix Tab] 80 mg PO DAILY 03/06/16 Albuterol Sulfate Nebs [Proventil Nebs] 2.5 mg INH Q8H PRN 08/28/16 Fluticasone/Salmeterol 250/50 [Advair Diskus] 1 puff INH BID 08/28/16 Nitroglycerin [Nitrostat] 0.4 mg SL PRN 08/28/16 Polyethylene Glycol 3350 [Miralax] 17 gm PO DAILY 08/28/16 Potassium Chloride Elixir [Kaochlor Liquid] 7.5 meq PO DAILY 08/28/16 Red Yeast Rice Extract [Red Yeast Rice] 600 mg PO TID 08/28/16 Temazepam 15 mg PO BEDTIME 08/28/16 Tiotropium [place] Monohydrate [Spiriva Handihaler] 1 puff IN DAILY 08/28/16 Warfarin Sodium [Coumadin] 4 mg PO .SA,AMANDA,TU,TH 08/28/16 Warfarin Sodium 2 mg PO MOWEFR 10/04/16 Review of Systems - Review of Systems Review of Systems: 09/07/17 20:58 for new symptoms only as per Constitutional: States: no symptoms reported EENTM: States: no symptoms reported Respiratory: States: no symptoms reported Cardiology: States: no symptoms reported Gastrointestinal/Abdominal: States: no symptoms reported Genitourinary: States: no symptoms reported Musculoskeletal: States: see HPI Skin: States: no symptoms reported Neurological: States: no symptoms reported Endocrine: States: no symptoms reported All other Systems: No Change from Baseline Past Medical History (General) - Patient Medical History Hx Seizures: No Hx Stroke: No Hx Dementia: No Hx Asthma: No Hx of COPD: Yes Hx Cardiac Disorders: Yes - A-fib Hx Congestive Heart Failure: Yes Hx Pacemaker: No Hx Hypertension: Yes Hx Thyroid Disease: No Hx Diabetes: No Hx Gastroesophageal Reflux: Yes Hx Renal Disease: No Hx Cancer: No Hx of HIV: No Hx Hepatitis C: No Hx MRSA: No Surgical History: pacemaker, other - Vaccination History Hx Tetanus, Diphtheria Vaccination: Yes Hx Influenza Vaccination: Yes Hx Pneumococcal Vaccination: Yes Immunizations Up to Date: Yes - Social History Hx Tobacco Use: No Hx Alcohol Use: No Hx Substance Use: No Hx Substance Use Treatment: No Hx Depression: No Hx Physical Abuse: No Hx Emotional Abuse: No Hx Suspected Abuse: No - Activities of Daily Living Alf/Assisted Living (if applicable):: Dariel Mosqueda - Female History Patient : No Family Medical History - Family History Mother Family History: Unknown Living Status: Age at (years of age): 85 Cause of : cardiac Hx Cardiac Disease: Yes - both parents Physical Exam - Physical Exam General Appearance: Alert, Comfortable, No apparent distress Eye Exam: bilateral normal Ears, Nose, Throat: other - earing is chronically decreased Neck: full range of motion, supple Respiratory: chest non-tender, lungs clear, no respiratory distress, no accessory muscle use Cardiovascular/Chest: normal peripheral pulses, no edema, other - mild bradycardia Peripheral Pulses: radial,right: 2+, radial,left: 2+, dorsalis pedis,right: 2+, dorsalis pedis,left: 2+ Gastrointestinal/Abdominal: non tender, soft Rectal Exam: deferred Back Exam: no CVA tenderness, no vertebral tenderness Extremity: no pedal edema, normal capillary refill, other - see history of present illness Neurologic: health technician hearing II-XII nml as tested, no motor/sensory deficits - he patient appears to be at his baseline, alert, other - he is anxious. Skin Exam: normal color Comments: Vital Signs - 24 hr 09/07/17 19:55 Temperature 97.7 F Pulse Rate [ 50 L right radial] Respiratory 20 Rate Blood Pressure 119/58 [Left Arm] O2 Sat by Pulse 96 Oximetry Progress - Progress Progress: 09/07/17 20:59 the patient is an 87-year-old male with gait instability that fell at the senior living [facility]. X-rays of the left shoulder and clavicle show no evidence of any fracture or dislocation. Due to his gait instability, he is not going to be placed in a shoulder immobilizer as he may require the arm to steady himself and prevent further falls. diagnosis is acute left rotator cuff strain. He can continue working with physical therapy as appropriate. He should follow up with his primary care doctor next week. ER warnings were given for any worsening Departure - Departure Clinical Impression: Sprain of upper arm or shoulder Disposition: Discharge to SNF Condition: Fair Departure Forms: ED Discharge - Pt. Copy, Patient Portal Self Enrollment Diet: regular diet Activity: no pushing/pulling with affected limb Referrals: Philip Mayer MD [Primary Care Provider] - 1-5 Days Home Medications: Ambulatory Orders Dutasteride [Avodart] 0.5 mg PO .--01/02/16 HYDROcodone 10MG/APAP 325MG [[place] 10/325] 1 ea PO 5XD PRN 01/02/16 Isosorbide Mononitrate [Isosorbide Mononitrate ER] 30 mg PO BID 01/02/16 Omeprazole [Prilosec] 40 mg PO DAILY@0700 01/02/16 Propranolol HCl 20 mg PO BID 01/02/16 Tamsulosin [Flomax] 0.4 mg PO BEDTIME 01/02/16 Calcium Carbonate-Vitamin D [Calcium 600+D 600-400 mg-Unit] 1 tab PO DAILY 01/05 Guaifenesin [Mucinex Maximum Strength] 1,200 mg PO BID 01/06/16 Furosemide Tab [Lasix Tab] 80 mg PO DAILY 03/06/16 Albuterol Sulfate Nebs [Proventil Nebs] 2.5 mg INH Q8H PRN 08/28/16 Fluticasone/Salmeterol 250/50 [Advair Diskus] 1 puff INH BID 08/28/16 Nitroglycerin [Nitrostat] 0.4 mg SL PRN 08/28/16 Polyethylene Glycol 3350 [Miralax] 17 gm PO DAILY 08/28/16 Potassium Chloride Elixir [Kaochlor Liquid] 7.5 meq PO DAILY 08/28/16 Red Yeast Rice Extract [Red Yeast Rice] 600 mg PO TID 08/28/16 Temazepam 15 mg PO BEDTIME 08/28/[address] Tiotropium [place] Monohydrate [Spiriva Handihaler] 1 puff IN DAILY 08/28/16 Warfarin Sodium [Coumadin] 4 mg PO .SA,AMANDA,TU,TH 08/28/16 Warfarin Sodium 2 mg PO MOWEFR 10/04/16 Additional Instructions: the patient is an 87-year-old male with gait instability that fell at the senior living [facility]. X-rays of the left shoulder and clavicle show no evidence of any fracture or dislocation. Due to his gait instability, he is not going to be placed in a shoulder immobilizer as he may require the arm to steady himself and prevent further falls. diagnosis is acute left rotator cuff strain. He can continue working with physical therapy as appropriate. He should follow up with his primary care doctor next week. ER warnings were given for any worsening
[2017-09-07 21:31] VITALS: O2SAT 94
[2017-09-07 21:33] VITALS: BP 123/84; TEMP 98.2
== END 2017-09-07 21:33 ==
LOC: ER 19:53
DX: S43.409A Unspecified sprain of unspecified shoulder joint, initial encounter (principal); I48.91 Unspecified atrial fibrillation; I11.0 Hypertensive heart disease with heart failure; I50.9 Heart failure, unspecified; K21.9 Gastro-esophageal reflux disease without esophagitis; Z95.0 Presence of cardiac pacemaker; Z79.01 Long term (current) use of anticoagulants; Z79.899 Other long term (current) drug therapy; W19.XXXA Unspecified fall, initial encounter; Y92.129 Unspecified place in nursing home as the place of occurrence of the external cause

== ENCOUNTER 2017-09-12 09:05 | Emergency (ER) | payer MEDICARE ==
--- NOTE | 2017-09-12 09:32 | ED.PDOC ---
History of Present Illness - General Chief Complaint: Respiratory Problem Stated Complaint: Difficulty Breathing Time Seen by Provider: 09/12/17 09:09 Source: EMS notes reviewed, alf records Exam Limitations: clinical condition - History of Present Illness Initial Comments: the patient is an 87-year-old male brought in from the alf by EMS after being intubated. The patient was apparently found down by staff at the facility this morning approximately 30 minutes prior to arrival. They were apparently unable to find a pulse on the patient and did start CPR. When EMS arrived the patient had a strong pulse but was unresponsive and unable to protect his airway. Based on the criteria he was intubated with a size 7 tube at 25 cm at the external aspect of the fixator. he had apparently been largely acting normally up until this morning. We had actually seen him 5 days ago after he tripped and fell and hurt his left shoulder. X-rays of the area showed no evidence offracture or dislocation. He was diagnosed with a rotator cuff injury, to resume therapy as indicated with this new injury. He apparently does have a history of significant arrhythmias and is on Coumadin. He also has a history of congestive heart failure and end-stage interstitial lung disease. He does appear to have recently been on Keflex and Levaquin. He does take breathing treatments. He is apparently on a concentrator most of the time. Upon arrival the patient is intubated already and he is fighting the ventilator a little bit. He is certainly not alert. He is obviously still unable to protect his airway. He is not moving his extremities with any purpose. he did receive 6 mg of versed here to help him relax on the vent. Breath sounds are coarse. He does show a mild bruise at the proximal clavicle on the left which was not present 5 days ago. I see no evidence of trauma elsewhere. initial blood pressures upon arrival are in the 130s to 150s on the systolic in however after approximately 1 hour his blood pressures start to drop precipitously down into the 60s and 70s on the systolic end. Timing/Duration: 1/2 hour Severity: severe Associated Symptoms: other - unable to giveinformation Allergies/Adverse Reactions: Allergies Penicillin G Allergy (Verified 04/30/17 23:25) Procaine [From Novocain] Allergy (Verified 04/30/17 23:25) IVP dye Allergy (Uncoded 04/30/17 23:25) Home Medications: Ambulatory Orders Dutasteride [Avodart] 0.5 mg PO DAILY 01/02/16 HYDROcodone 10MG/APAP 325MG [Abercrombie 10/325] 1 ea PO 5XD PRN 01/02/16 Omeprazole [Prilosec] 40 mg PO DAILY@0700 01/02/16 Propranolol HCl 40 mg PO BID 01/02/16 Tamsulosin [Flomax] 0.4 mg PO DAILY 01/02/16 Guaifenesin [Mucinex Maximum Strength] 600 mg PO BID 01/06/16 Fluticasone/Salmeterol 250/50 [Advair Diskus] 1 puff INH BID 08/28/16 Polyethylene Glycol 3350 [Miralax] 17 gm PO DAILY 08/28/16 Tiotropium Goodman Monohydrate [Spiriva Handihaler] 2 puff IN DAILY 08/28/16 Warfarin Sodium [Coumadin] 4 mg PO .SA,AMANDA 08/28/16 Warfarin Sodium 2 mg PO MOTUWETHFR 10/04/16 Acetylcysteine 2 ml IN BID 09/12/17 Amiodarone HCl 200 mg PO DAILY 09/12/17 Bisacodyl [Dulcolax Tab] 5 mg PO DAILY PRN 09/12/17 Budesonide (Inhalation) [Budesonide] 0.5 mg IN BID 09/12/17 Docusate Sodium 100 mg PO DAILY PRN 09/12/17 Gabapentin 300 mg PO TID 09/12/17 Hypromellose (Ophth) [Genteal Severe] 0.3 % OP BID 09/12/17 Ipratropium/Albuterol [Duoneb] 3 ml NEB BID 09/12/17 Metolazone 2.5 mg PO DAILY 09/12/17 Multiple Vitamins W/ Minerals [Multivitamin Adults] 1 tab PO DAILY 09/12/17 Potassium Chloride [Micro-K] 20 meq PO BID 09/12/17 Tramadol HCl 50 mg PO Q6H PRN 09/12/17 Review of Systems - Review of Systems Review of Systems: 09/12/17 09:31 unable to obtain secondary to patient's condition. Past Medical History (General) - Patient Medical History Hx Seizures: No Hx Stroke: No Hx Dementia: No Hx Asthma: No Hx of COPD: Yes Hx Cardiac Disorders: Yes - A-fib Hx Congestive Heart Failure: Yes Hx Pacemaker: No Hx Hypertension: Yes Hx Thyroid Disease: No Hx Diabetes: No Hx Gastroesophageal Reflux: Yes Hx Renal Disease: No Hx Cancer: No Hx of HIV: No Hx Hepatitis C: No Hx MRSA: No - Vaccination History Hx Tetanus, Diphtheria Vaccination: Yes Hx Influenza Vaccination: Yes Hx Pneumococcal Vaccination: Yes - Social History Hx Tobacco Use: No Hx Alcohol Use: No Hx Substance Use: No Hx Substance Use Treatment: No Hx Depression: No Hx Physical Abuse: No Hx Emotional Abuse: No Hx Suspected Abuse: No - Female History Patient : No Family Medical History - Family History Mother Family History: Unknown Living Status: Age at (years of age): 85 Cause of : cardiac Hx Cardiac Disease: Yes - both parents Physical Exam - Physical Exam General Appearance: Other - intubated. bucking the vent somewhat. Eye Exam: bilateral normal - he patient is not purposely looking around any manner. He does blink on occasion. Ears, Nose, Throat: other - endotracheal tube is in place with fixator in place. Tube has migrated down and was withdrawn back to 25 cm at the external fixator Neck: supple Respiratory: other - coarse breath sounds bilaterally. Cardiovascular/Chest: normal peripheral pulses, no edema, other - egular rate but obviously atrial fibrillation Peripheral Pulses: radial,right: 2+, radial,left: 2+, dorsalis pedis,right: 2+, dorsalis pedis,left: 2+ Gastrointestinal/Abdominal: soft, other - no evidence of discomfort palpation Rectal Exam: deferred Back Exam: normal inspection Extremity: normal range of motion - passive, no pedal edema, normal capillary refill, other - the patient does not move his extremities without any purpose. He does not withdraw to pain. Neurologic: other - the patient isunresponsive. He does blink his eyes occasionally. Skin Exam: pallor Comments: Vital Signs - 24 hr 09/12/17 09:25 Temperature 95.5 F L Pulse Rate [ 62 Right Brachial] Respiratory 12 Rate Blood Pressure 153/97 [Right Arm] O2 Sat by Pulse 97 Oximetry Progress - Progress Progress: 09/12/17 11:12 he patient is an 87-year-old male presenting to the emergency room intubated by EMS after a full arrest at the alf. The patient was apparently alert and oriented at least 30 minutes before being found down in his bed. He was complaining of shoulder pain from his previous fall and the nurse and gone to get him some medications. Blood pressures were initially within normal limits upon his arrival here however over the period of 30 or 40 minutes his blood pressure started to fall. The patient has had restarted on dopamine and did receive 1 jacquelin small dose of IV epinephrine for the hypotension and mild bradycardia while the dopamine was being titrated. So far the patient does have some [id number] hyponatremia. ABG indicates most likely an acute respiratory acidosis. This should be correcting with better perfusion and ventilation currently. He does have an elevation of his LFTs consistent with hypotension and heart failure. He also has a markedly elevated d-dimer which may be due to the CPR but may also indicate other vascular pathologies. High on this list is the possibility of aortic pathology. The patient is allergic to IV dye. After discussion with the family they would not want a surgical repair for aortic pathology as he would likely not survive it. As per their request we are doing CT scan of his chest and abdomen for evaluation of the aorta to see if indeed that is the source. If that is the source and they are indicating that they would likely do comfort care here for him. If that is not the source and we will plan on transferring him for further evaluation with cardiology. He is receiving a dose of meropenem for the sinusitis. Again there is the possibility of this being a fungal sinusitis and if no other source for his deterioration is found then aspiration of this may be warranted for directed therapy. Blood cultures have been performed. He has received 1 L of IV fluids. He is on dopamine as a pressor and maintaining systolic blood pressures between 90 and 100. After discussion with his and several other family members they have decided that if he goes into a non-perfusing arrhythmia and arrests again that they would not want to have chest compressions or cardioversion performed. We will plan on scanning the patient for thesignificant possibility of aortic pathology to help guide further decision making on this patient. Other family members are coming into town. 09/12/17 13:21 additional information from the family notes that yesterday the patient had started having chills but no fevers. He was starting to feel weaker. his oral intake has apparently not been well recently. In summary the patient is an 87-year-old male presenting status post arrest. it appears that sepsis may have been the precipitating event. Several possible sources for sepsis have been found including a possible small right upper lobe pneumonia, a significant sphenoid sinusitis that may have a fungal component, but most likely an acute cholecystitis. The patient has been dosed with meropenem. He has received a dose of Solu-Medrol. Blood cultures have been performed. He has received 1-1/2 L of IV fluids, a conservative volume given his CHF history. Due to hypotension he is currently on dopamine at 10 mcg /kg/m and hypotension has so far been corrected. He does have a markedly elevated d-dimer which may be due to the CPR. Certainly we have been unable to rule out a pulmonary embolus at this time due to the inability to give IV contrast. No mention of any aortic pathology was noted on the radiology report. he does have some moderate hyponatremia which will bear monitoring. repeat cardiac enzymes, ABG and right upper quadrant ultrasound would be warranted upon arrival at the receiving facility. Family has indicated that they would like to continue with the ventilator and pressor care as well as antibiotics as indicated. However if the patient codes again they do not want chest compressions or electrical cardioversion. transferring for higher level of care. Critical care time spent in management of the above condition as well as with coordination of care with the receiving facility and consultation with family, excluding otherwise billable procedures is 70 minutes. 09/12/17 13:31 09/12/17 13:34 - Results/Orders Results/Orders: Laboratory Tests 09/12/17 09/12/17 09/12/17 09:16 09:30 09:30 WBC 6.4 RBC 3.51 L Hgb 10.2 L Hct 30.7 L MCV 87.3 MCH 29.0 MCHC 33.1 RDW 16.3 H Plt Count 168 MPV 7.5 Absolute Neuts (auto) 5.40 Absolute Lymphs (auto) 0.30 L Absolute Monos (auto) 0.70 Absolute Eos (auto) 0.00 Absolute Basos (auto) 0.00 Neutrophils % 83.9 H Lymphocytes % 4.9 L Monocytes % 10.4 H Eosinophils % 0.1 L Basophils % 0.7 PT INR PTT (SP) D-Dimer, Quantitative pCO2 pO2 HCO3 ABG pH ABG O2 Saturation ABG Base Excess ABG Deoxyhemoglobin Oxyhemoglobin % Carboxyhemoglobin % Methemoglobin % Sat Calc Total Hemoglobin Sodium 127 L Potassium 5.3 H Chloride 94 L Carbon Dioxide 23 Anion Gap 15.3 BUN 34 H Creatinine 1.67 H BUN/Creatinine Ratio 20.4 H POC Glucose 163 H Random Glucose 138 H Serum Osmolality 265.0 L Lactic Acid Calcium 8.2 L Magnesium 2.0 Total Bilirubin 1.1 H AST 216 H ALT 156 H Alkaline Phosphatase 78 Creatine Kinase 33 L CK-MB (CK-2) 2.8 CK-MB (CK-2) % Not Reportable Troponin I 0.03 B-Natriuretic Peptide 809.0 H* Serum Total Protein 6.2 L Albumin 3.1 L Globulin 3.1 Albumin/Globulin Ratio 1.0 L Urine Color Urine Appearance Urine pH Ur Specific Clifton Urine Protein Urine Glucose (UA) Urine Ketones Urine Blood Urine Nitrite Urine Bilirubin Urine Urobilinogen Ur Leukocyte Esterase Urine RBC Urine WBC Ur Epithelial Cells Amorphous Sediment Urine Bacteria 09/12/17 09/12/17 09/12/17 09:30 09:30 10:03 WBC RBC Hgb Hct MCV MCH MCHC RDW Plt Count MPV Absolute Neuts (auto) Absolute Lymphs (auto) Absolute Monos (auto) Absolute Eos (auto) Absolute Basos (auto) Neutrophils % Lymphocytes % Monocytes % Eosinophils % Basophils % PT 42.1 H* INR 3.770 H* PTT (SP) 37.6 H D-Dimer, Quantitative 4311 H* pCO2 pO2 HCO3 ABG pH ABG O2 Saturation ABG Base Excess ABG Deoxyhemoglobin Oxyhemoglobin % Carboxyhemoglobin % Methemoglobin % Sat Calc Total Hemoglobin Sodium Potassium Chloride Carbon Dioxide Anion Gap BUN Creatinine BUN/Creatinine Ratio POC Glucose Random Glucose Serum Osmolality Lactic Acid 2.1 Calcium Magnesium Total Bilirubin AST ALT Alkaline Phosphatase Creatine Kinase CK-MB (CK-2) CK-MB (CK-2) % Troponin I B-Natriuretic Peptide Serum Total Protein Albumin Globulin Albumin/Globulin Ratio Urine Color Yellow Urine Appearance Cloudy Urine pH 5.0 Ur Specific Clifton 1.025 Urine Protein 100 H Urine Glucose (UA) Negative Urine Ketones Negative Urine Blood Trace-intact H Urine Nitrite Negative Urine Bilirubin Negative Urine Urobilinogen 0.2 Ur Leukocyte Esterase Negative Urine RBC 0-1 Urine WBC 0 Ur Epithelial Cells 0 Amorphous Sediment 2+ Urine Bacteria 0 09/12/17 10:29 WBC RBC Hgb Hct MCV MCH MCHC RDW Plt Count MPV Absolute Neuts (auto) Absolute Lymphs (auto) Absolute Monos (auto) Absolute Eos (auto) Absolute Basos (auto) Neutrophils % Lymphocytes % Monocytes % Eosinophils % Basophils % PT INR PTT (SP) D-Dimer, Quantitative pCO2 51 H pO2 126 H* HCO3 22.4 ABG pH 7.260 L* ABG O2 Saturation 99.3 H ABG Base Excess -4.2 ABG Deoxyhemoglobin 0.7 Oxyhemoglobin % 97.1 Carboxyhemoglobin % 0.5 Methemoglobin % Sat 1.7 H Calc Total Hemoglobin 10.2 L Sodium Potassium Chloride Carbon Dioxide Anion Gap BUN Creatinine BUN/Creatinine Ratio POC Glucose Random Glucose Serum Osmolality Lactic Acid Calcium Magnesium Total Bilirubin AST ALT Alkaline Phosphatase Creatine Kinase CK-MB (CK-2) CK-MB (CK-2) % Troponin I B-Natriuretic Peptide Serum Total Protein Albumin Globulin Albumin/Globulin Ratio Urine Color Urine Appearance Urine pH Ur Specific Clif[place] Urine Protein Urine Glucose (UA) Urine Ketones Urine Blood Urine Nitrite Urine Bilirubin Urine Urobilinogen Ur Leukocyte Esterase Urine RBC Urine WBC Ur Epithelial Cells Amorphous Sediment Urine Bacteria CT scan of the head shows previous infarcts. No evidence of any intracranial hemorrhage or herniation. The patient has very significant sphenoid sinusitis indicating the possibility of a fungal sinusitis. There is also sinusitis of the left frontal and anterior ethmoid cells. 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 Chest x-ray shows cardiomegaly and some No obvious new infiltrate. CT scan of the chest abdomen pelvis was initially performed to help rule out any acute aortic pathology. No mention of any acute aortic pathology was made by radiology however this is a noncontrasted study secondary to allergy. The patient does have numerous chronic findings. There is a question of a small right upper lobe pneumonia. There is also the significant possibility of an acute cholecystitis. Multiple other chronic findings are noted. There is a small amount of free fluid in the pelvis. See full report for details. EKG shows atrial fibrillation with rate controll. He does have T-wave inversions in inferior leads which is not new. There are no acute ST segment changes consistent with new ischemia when compared with his previous EKG. Departure - Departure Clinical Impression: Cardiac arrest, Sepsis associated hypotension, Cholecystitis Disposition: Transfer to Hospital Condition: Poor Referrals: Philip Mayer MD [Primary Care Provider] - 1-2 Weeks Home Medications: Ambulatory Orders Dutasteride [Avodart] 0.5 mg PO DAILY 01/02/16 HYDROcodone 10MG/APAP 325MG [Abercrombie 10/325] 1 ea PO 5XD PRN 01/02/16 Omeprazole [Prilosec] 40 mg PO DAILY@0700 01/02/16 Propranolol HCl 40 mg PO BID 01/02/16 Tamsulosin [Flomax] 0.4 mg PO DAILY 01/02/16 Guaifenesin [Mucinex Maximum Strength] 600 mg PO BID 01/06/16 Fluticasone/Salmeterol 250/50 [Advair Diskus] 1 puff INH BID 08/28/16 Polyethylene Glycol 3350 [Miralax] 17 gm PO DAILY 08/28/16 Tiotropium Goodman Monohydrate [Spiriva Handihaler] 2 puff IN DAILY 08/28/16 Warfarin Sodium [Coumadin] 4 mg PO .SA,AMANDA 08/28/16 Warfarin Sodium 2 mg PO MOTUWETHFR 10/04/16 Acetylcysteine 2 ml IN BID 09/12/17 Amiodarone HCl 200 mg PO DAILY 09/12/17 Bisacodyl [Dulcolax Tab] 5 mg PO DAILY PRN 09/12/17 Budesonide (Inhalation) [Budesonide] 0.5 mg IN BID 09/12/17 Docusate Sodium 100 mg PO DAILY PRN 09/12/17 Gabapentin 300 mg PO TID 09/12/17 Hypromellose (Ophth) [Genteal Severe] 0.3 % OP BID 09/12/17 Ipratropium/Albuterol [Duoneb] 3 ml NEB BID 09/12/17 Metolazone 2.5 mg PO DAILY 09/12/17 Multiple Vitamins W/ Minerals [Multivitamin Adults] 1 tab PO DAILY 09/12/17 Potassium Chloride [Micro-K] 20 meq PO BID 09/12/17 Tramadol HCl 50 mg PO Q6H PRN 09/12/17 Transfer to Outside Facility - Transfer Information Accepting Provider:: sukhi greene Accepting Facility: [facility] Reason for Transfer: ICU
[2017-09-12] MEDS ORDERED: MIDAZOLAM INJ 5 MG/5 ML VIAL IV ONE ×3 (09:36→11:38)
--- NOTE | 2017-09-12 10:02 | CT ---
EXAM DESCRIPTION: Head CLINICAL HISTORY: resp failure, ams COMPARISON: None available TECHNIQUE: Noncontrast head CT was performed with routine protocol. FINDINGS: Normal varela-white matter differentiation with no acute-appearing disruption of the varela matter stripe. Ventricles and sulci are large consistent with age-related cerebral volume loss. Low density white matter is consistent with chronic microvascular ischemic changes. Old infarcts in the superior cerebellar hemispheres are seen bilaterally. 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 Intracranial carotid calcification is seen and there is calcification of the left vertebral artery. The globes appear intact. Normal orbital contents. Coronal and sagittal reformatted images confirm the findings. No high density hemorrhage, focal edema or shift of the midline. No sulcal effacement. Normal orbital contents. Basilar cisterns appear clear. Intact calvarium with no fracture or lytic lesion. Normal aeration of tympanic cavities and mastoid air cells. There is fluid opacification of the left sphenoid sinus consistent with sinusitis. No bony destructive changes or expansion to suggest mucocele and there is minimal air with the fluid and mucosal thickening here. Patchy mucosal thickening or fluid in the anterior ethmoid air cells is also noted more than posteriorly and there is left frontal sinus mucosal thickening. Nodular mucosal thickening in the left maxillary sinus is seen measuring 2 to 3 mm. Lesser minimal mucosal thickening in the right maxillary sinus. Skull base appears intact. Symmetrical internal auditory canals. Sagittal and coronal reformatted images confirm the findings. There is thinning of the anterior corpus callosum. Beam hardening artifact obscures the melissa and medulla. Opacity of the sphenoid sinus appear somewhat dense which could indicate chronic inspissated mucus or fungal infection. IMPRESSION: No acute intracranial pathologic process. Senescent brain with extensive chronic microvascular ischemic changes in the cerebral white matter. 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 Paranasal sinus inflammatory disease including left sphenoid sinusitis. This exam was performed according to our departmental dose-optimization program, which includes automated exposure control, adjustment of the mA and/or kV according to patient size and/or use of iterative reconstruction technique. Total DLP equals 859.97 mGycm. Electronically signed by: Miguel Ángel Prakash MD 09/12/2017 10:00 AM CDT
--- NOTE | 2017-09-12 10:02 | RAD ---
EXAM DESCRIPTION: Chest,1 View CLINICAL HISTORY: Respiratory Failure COMPARISON: September 07, 2017 FINDINGS: An endotracheal tube is present with the tube tip projecting over the trachea just proximal to the aortic arch. A single lead cardiac pacemaker is present, and postoperative changes are noted in the mediastinum. A defibrillator pad projects over the right hemithorax and left upper quadrant. The heart is slightly enlarged but stable. Mediastinal contours are otherwise unremarkable. There are mural calcifications in the aortic arch. The some well-defined opacity in the right lung base which is unchanged from an older exam performed in April, and likely represents lobulated contour of the right hemidiaphragm. Subsegmental atelectasis or scarring is noted elsewhere in both lung bases, but there is no new airspace consolidation or definite pleural effusion. The central bronchovascular markings are indistinct. There is no pneumothorax or acute fracture. IMPRESSION: Endotracheal tube in place as detailed above without apparent complication. Cardiomegaly with probable central pulmonary vascular congestion. No additional acute intrathoracic abnormality. Electronically signed by: Barak Mujica MD 09/12/2017 10:00 AM CDT
[2017-09-12] MEDS ORDERED: DOPamine PREMIX 250 ML IVPB ONE (10:03)
[2017-09-12] MEDS ORDERED: DOPamine PREMIX 400 MG in PREMIX BAG 1 BAG IVPB SCH (10:30)
[2017-09-12 10:31] VITALS: O2SAT 100
[2017-09-12] MEDS ORDERED: methylPREDNISolone SODIUM SUC 125 MG/2 ML VIAL IV ONE (10:31)
[2017-09-12] MEDS ORDERED: MEROPENEM 1 GM in SODIUM CHL 0.9% 50ML MIN-BAG+ 50 ML IVPB ONE (10:31)
[2017-09-12] MEDS ORDERED: SODIUM CHL 0.9% 50ML MIN-BAG+ 50 ML IVPB ONE (10:33)
[2017-09-12] MEDS ORDERED: MEROPENEM 1 GM VIAL IVPB ONE (10:34)
--- NOTE | 2017-09-12 12:32 | CT ---
EXAM DESCRIPTION: Abdoment/Pelvis w/o Contrast (accession [id number]), Chest w/o Contrast (accession [id number]) : Computed Tomography. CLINICAL HISTORY: possible aortic path. Allergy to IV contrast. COMPARISON: CT scan of head on the same visit. TECHNIQUE: Spiral-axial scans at 5.0 mm intervals through the lungs and thorax, abdomen and pelvis without IV contrast. 2.5 mm lung algorithm axial reconstructions. Coronal and sagittal 2.0 Mm reconstructions through the chest. No adverse reactions. Total Exam DLP: 1871.19 mGy-cm. This exam was performed according to our departmental dose-optimization program which includes automated exposure control, adjustment of the mA and/or kV according to patient size and/or use of iterative reconstruction technique; to reduce radiation dose to as low as reasonably achievable (ALARA). FINDINGS: 1 cm subpleural partially solid nodule with adjacent density in the lateral right upper lobe (series 5, image 31). Lobulated 1.5 cm solid nodule posterior right upper lobe at the same level. Other subpleural or pleural nodular densities more superiorly. Peripheral groundglass density right upper lobe is extending from the hilum to the subpleural region. Also apical subpleural densities on the left.. Scarring and volume loss in the left lower lobe with pleural thickening. 9 mm subpleural nodule abutting the major fissure lateral right lower lobe (image 86). Posterior basilar pleural thickening. Focal 5 and 7 mm parenchymal nodules in the right lower lobe on image 65. 4 mm nodule inferior subpleural right middle lobe on image 69. Heterogeneous density in the thyroid gland with 1.4 x 1.4 cm nodule in the inferior right lobe. Pacemaker left chest wall and pacing wire in the right ventricle. Atherosclerotic calcifications thoracic aorta and proximal brachiocephalic vessels. Prior sternotomy. Coronary artery stents and calcifications. Evaluation of the soft tissues is limited due to lack of IV contrast but no large lymph nodes or soft tissue masses in the mediastinum or hilum. No axillary enlarged lymph nodes. Spondylosis at multiple levels of the thoracic spine with foraminal narrowing at some levels. Mild dextroscoliosis. Bilateral glenohumeral joint degenerative changes. Liver, stomach, spleen, and adrenal glands: Liver is small and heterogeneous with disproportionate size of left lobe compared to the right. Capsule is minimally lobulated. Minimal ascites around the liver and spleen. Spleen and adrenal glands are unremarkable. Stomach contains mostly fluid. Pancreas, Gallbladder, and Ducts: Gallbladder is significantly dilated with wall thickening. No surrounding fluid. Fatty infiltration of the pancreas. Common bile duct is not well seen. Vascular calcifications in the peripancreatic area and portal region. Kidneys and Ureters: Bilateral thin cortex with no radiodense stones or hydronephrosis. Physiologic pararenal fascial thickening. Normal caliber of the ureters with no radiodense stones. Mesentery: Scattered areas of fascial thickening and stranding or fluid is noted. Fluid in the anterior peritoneal reflection in the pelvis. No free air. Aorta: Tortuous and ectatic with moderate atherosclerotic calcification and calcification involving the ostia of the major branch vessels. Small Bowel: Contains fluid and minimal gas. No distention or significant air-fluid levels. Terminal Ileum/Cecum: Normal caliber of the TI. Cecum distended by gas. Appendix not seen. Minimal fascial thickening and fluid abutting the cecum and also in the right pericolic gutter. Colon: Ascending and transverse colon distended by gas with no air-fluid levels. Redundancy of the splenic flexure. Multiple diverticula in the descending colon into the sigmoid colon. Moderate redundancy of the sigmoid colon. No radiographic evidence of complications. Pelvic Organs: Prostate gland is abutting the urinary bladder which is decompressed contains a catheter with balloon inflated. Free fluid is noted is a described. No prominent pelvic mass. Beam hardening artifact from left total hip arthroplasty. Spine and Bony Pelvis: Diffuse bone density loss with prior vertebral body augmentation at L2 and L4. Bilateral significant foraminal narrowing at both levels. No other compression deformities. 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 Minimal sacroiliac arthrosis more on the right with degenerative changes also in the pubic symphysis and overall loss of bone density. Abdominal Wall/Back Soft Tissues: No significant hernias masses or other defects. IMPRESSION: 1. Emphysematous changes in the bilateral lungs more prevalent in the upper lobes with possible pneumonia right upper lobe. Bilateral lung nodules and pleural thickening with atelectasis in the bases more prominent on the left lower lobe with volume loss. Bilateral pleural thickening. Consider follow-up chest CT scan in 3 month interval to reevaluate nodules. 2. Prior sternotomy with right ventricle pacing wire. Coronary artery stents and calcifications. 3. Small liver with possible cirrhotic changes. No ascites. 4. Enlarged gallbladder with common bile duct not well seen. Consider right upper quadrant abdominal ultrasound cholelithiasis or cholecystitis is suspected. Pancreas not well seen. 5. Free fluid in the pelvis. Bilateral renal cortical atrophy. Gas distention of the proximal and mid colon. Distal colon diverticulosis with no evidence of complications. 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 No definite pelvic mass. Limited study due to lack of IV contrast.. Electronically signed by: Cuong Mccrary MD 09/12/2017 12:29 PM CDT
[2017-09-12] MEDS ORDERED: SODIUM CHLORIDE 0.9% 1000ML 500 ML IVS ONE (13:12)
[2017-09-12 14:24] VITALS: BP 128/83
[2017-09-12 18:30] VITALS: TEMP 98.6
== END 2017-09-12 14:24 | disposition short-term general hospital (02) ==
LOC: ER 09:05
DX: I46.9 Cardiac arrest, cause unspecified (principal); A41.9 Sepsis, unspecified organism; I95.9 Hypotension, unspecified; K81.9 Cholecystitis, unspecified; J32.3 Chronic sphenoidal sinusitis; E87.1 Hypo-osmolality and hyponatremia
CPT/HCPCS: 36415; 36416; 36600; 70450; 71045; 71250; 74176; 80053; 81001; 82550; 82553; 82803; 82805; 82948; 83605; 83735; 83880; 84484; 85025; 85379; 85610; 85730; 87040; 93005; 94002; 94770; J1265; J2185; J2250; J2930; J7030; J7050